=== PATIENT | male | born 1950 | race Caucasian/White ===

== ENCOUNTER 2016-08-15 22:55 | Observation (INO) | payer BC ==
--- NOTE | 2016-08-16 00:41 | ED ---
Abdominal Pain/Male - HPI Summary HPI Summary: Patient presents with a year of diffuse abdominal pain that worsened today in the RUQ. He has a history of compulsive eating, Lyme disease, and anxiety. He does not relate the pain to eating, drinking or exertion. No fever, chills, N/V/ D, or back pain. He says he can't button his pants because he thinks he is bloated. No urinary symptoms, or constipation. He had a normal bowel movement today and has been eating and drinking at his baseline. - History of Current Complaint Chief Complaint: EDAbdPain Stated Complaint: LRQ PAIN/FEVER 100 Time Seen by Provider: 08/15/16 23:31 Hx Obtained From: Patient Onset/Duration: Gradual Onset Timing: Constant Severity Initially: Mild Severity Currently: Moderate Pain Intensity: 4 Location: Discrete At: RUQ Radiates: No Character: Dull Aggravating Factor(s): Nothing Alleviating Factor(s): Nothing Associated Signs And Symptoms: Positive: Negative - Allergies/Home Medications Allergies/Adverse Reactions: Allergies Allergy/AdvReac Type Severity Reaction Status Date / Time Clindamycin Allergy Severe Diarrhea Verified 08/15/16 23:06 Penicillins Allergy Severe Rash And Verified 08/15/16 23:06 Itching Benzodiazepines Allergy LOSS OF Verified 08/15/16 23:06 MEMORY Home Medications: Home Medications lamoTRIgine TAB(*) [LaMICtal TAB(*)] 100 mg PO BEDTIME 08/16/16 [History Confirmed 08/16/16] PMH/Surg Hx/FS Hx/Imm Hx Endocrine/Hematology History: Denies: Hx Diabetes Cardiovascular History: Reports: Hx Syncope, Other Cardiovascular Problems/ Disorders - States cardiac symptoms were related to tooth infections Denies: Hx Congestive Heart Failure, Hx Hypertension, Hx Pacemaker/ICD Respiratory History: Denies: Hx Asthma GI History: Reports: Hx Gastroesophageal Reflux Disease, Other GI Disorders - constriction of voice History: Denies: Hx Dialysis, Hx Renal Disease Musculoskeletal History: Reports: Hx Back Problems - L5 fracture Sensory History: Reports: Hx Contacts or Glasses Denies: Hx Hearing Aid Opthamlomology History: Reports: Hx Contacts or Glasses Neurological History: Reports: Hx Headaches, Other Neuro Impairments/Disorders - Hx L5 fracture, seizure prior to admission, dizziness Psychiatric History: Reports: Hx Anxiety, Hx Attention Deficit Hyperactivity Disorder - ADD, Hx Post Traumatic Stress Disorder - per patient; undiagnosed., Hx Substance Abuse Denies: Hx Panic Disorder, Hx Suicide Attempt - Cancer History Cancer Type, Location and Year: melanoma 4-5 years ago - Surgical History Surgery Procedure, Year, and Place: SKIN CARCINOMA 2008. TONSILS CHILD Hx Anesthesia Reactions: No Infectious Disease History: No Infectious Disease History: Denies: Traveled Outside the [place] in Last 30 Days - Family History Known Family History: Positive: None - Social History Occupation: Employed Part-time Lives: Alone Alcohol Use: None Substance Use Type: Reports: None Smoking Status (MU): Never Smoked Tobacco Review of Systems Negative: Fever, Chills Negative: Chest Pain Negative: Shortness Of Breath Positive: Abdominal Pain. Negative: Vomiting, Diarrhea, Nausea Positive: no symptoms reported Negative: Myalgia, Decreased ROM Negative: Weakness, Paresthesia, Numbness All Other Systems Reviewed And Are Negative: Yes Physical Exam - Summary Physical Exam Summary: Patient is resting comfortably on the stretcher in no acute distress. Triage Information Reviewed: Yes Vital Signs On Initial Exam: Initial Vitals Temp Pulse Resp BP Pulse Ox 99.9 F 105 20 112/69 98 08/15/16 23:00 08/15/16 23:00 08/15/16 23:00 08/15/16 23:00 08/15/16 23:00 Vital Signs Reviewed: Yes Appearance: Positive: Well-Appearing, No Pain Distress, Well-Nourished Skin: Positive: Warm, Skin Color Reflects Adequate Perfusion, Dry, Soft Head/Face: Positive: Normal Head/Face Inspection Eyes: Positive: EOMI, MINOR, Conjunctiva Clear ENT: Positive: Hearing grossly normal, Pharynx normal Neck: Positive: Supple, Nontender, No Lymphadenopathy Respiratory/Lung Sounds: Positive: Clear to Auscultation, Breath Sounds Present Cardiovascular: Positive: RRR Abdomen Description: Positive: Soft. Negative: Nontender - RUQ tenderness, CVA Tenderness (R), CVA Tenderness (L), Distended, Guarding, Hepatomegaly, McBurney' s Point Tenderness, Peritoneal Signs, Pulsatile Mass, Splenomegaly Bowel Sounds: Positive: Present Musculoskeletal: Negative: Edema Left, Edema Right Neurological: Positive: Sensory/Motor Intact, Alert, Oriented to Person Place, Time, NV Bundle Intact Distally, Normal Gait Psychiatric: Positive: Anxious - patient is tangential and relates many physical complaints unrelated to his primary visit complaint AVPU Assessment: Alert Diagnostics - Vital Signs Vital Signs Temp Pulse Resp BP Pulse Ox 08/15/16 23:05 99.9 F 20 20 112/69 98 08/15/16 23:00 99.9 F 105 20 112/69 98 - Laboratory Result Diagrams: 08/17/16 04:17 08/16/16 00:55 Lab Statement: Any lab studies that have been ordered have been reviewed, and results considered in the medical decision making process. - Ultrasound No standard instances Ultrasound Interpretation: Positive (See Comments) Ultrasound Interpretation Completed By: Radiologist - incidental celiac artery aneurysm Abdominal Pain Fem Course/Dx - Diagnoses Differential Diagnosis/HQI/PQRI: Appendicitis, Bowel Obstruction, Constipation, Diverticulitis, Hepatitis, Pancreatitis, Renal Colic, Ureteral Stone, Urinary Tract Infection Provider Diagnoses: Appendicitis - Provider Notifications Discussed Care Of Patient With: Patient care given to Dr. Diaz Time Discussed With Above Provider: 03:50 Discharge - Discharge Plan Condition: Stable Disposition: ADMITTED TO [facility]
[2016-08-16 01:07] LABS: Hematocrit 44 % (42-52); Hemoglobin 14.3 g/dl (14.0-18.0); Mean Corpuscular HGB Conc 33 g/dl (31-36); Mean Corpuscular Hemoglobin 28 pg (27-31); Mean Corpuscular Volume 87 fL (80-94); Mean Platelet Volume 8 um3 (7.4-10.4); Red Blood Count 5.05 10^6/ul (4.0-5.4); Red Cell Distribution Width 13 % (10.5-15); White Blood Count 16.9 10^3/ul (3.5-10.8)
[2016-08-16 01:13] LABS: Urine Bilirubin Negative (Negative); Urine Glucose Negative (Negative); Urine Nitrite Negative (Negative)
[2016-08-16 01:25] LABS: Albumin 4.4 g/dL (3.2-5.2); BUN/Creatinine Ratio 14.5 (8-20); C Reactive Protein 2.74 mg/L (< 5.00); Calcium 9.5 mg/dL (8.6-10.3); EGFR African American 86.7 (>60); EGFR Non-African American 67.4 (>60); Globulin 2.6 g/dL (2-4); Total Bilirubin 0.9 mg/dL (0.2-1.0)
[2016-08-16 01:44] LABS: Potassium 4.1 mmol/L (3.5-5.0)
[2016-08-16] MEDS ORDERED: Sodium Phosphate ADULT ENEMA* 118 ml bottle PR ONE (03:47)
[2016-08-16] MEDS ORDERED: NS 0.9% 1000 ML* 1,000 ML IV ONE (03:55)
[2016-08-16] MEDS ORDERED: Iohexol 300* (CONTRAST) 10 ML SDV IV ONE (04:49)
--- NOTE | 2016-08-16 07:56 | RAD ---
INDICATION: ] Right upper quadrant pain COMPARISON: CT abdomen pelvis August 16, 2016 TECHNIQUE: Longitudinal and transverse scans of the right upper quadrant were obtained. Doppler interrogation of the hepatic and portal venous system was performed. FINDINGS: Liver: The liver is normal in size and echogenicity. There are no focal masses. The liver measures 15 cm in cephalocaudal dimension. Vessels: There is normal hepatic and portal venous flow. Bile ducts: There is no evidence of intrahepatic or extrahepatic ductal dilatation. The common duct measures 0.4 cm. Gallbladder: The sonographic appearance of the gallbladder is normal. There is no evidence of cholelithiasis, thickening of the gallbladder wall, or pericholecystic fluid. Pancreas: The visualized pancreas appears normal Right kidney: The right kidney is normal in size and echogenicity. There are no masses or calculi. There is no evidence of hydronephrosis. The right kidney measures 9.6 x 5.4 x 4.7 cm. IVC and aorta: The aorta and superior vena cava appear normal. Fluid: There is no ascites. 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 This is also documented on the CT exam IMPRESSION: NORMAL GALLBLADDER. INCIDENTAL CELIAC ARTERY ANEURYSM. PLEASE REFER ALSO TO CONCURRENT CT REPORT WHICH ACUTE APPENDICITIS IS IDENTIFIED.
--- NOTE | 2016-08-16 08:14 | ED ---
Annie Dennis Alok, scribed for Juan Diaz MD on 08/16/16 at 0536 . Progress - Progress Note Progress Note: Abd/Pel CT - Impression: Acute appendicitis without abscess or free air. Secondary cecal inflammation. ADMIT SURGERY STABLE - EKG/XRAY/CT CT: Abd/Pel CT - See note - Consult/PCP Consult/PCP: Dr Stephens (Surgery) @ [id number] Course/Dx - Course Course Of Treatment: NO CRITICAL CARE TIME. ADMIT SURGERY STABLE - Diagnoses Provider Diagnoses: Appendicitis The documentation as recorded by the Annie auguste Alok accurately reflects the service I personally performed and the decisions made by Emily canela William, MD.
--- NOTE | 2016-08-16 08:30 | RAD ---
INDICATION: RIGHT upper quadrant and RIGHT lower quadrant pain. Elevated white blood cell count. History of melanoma 10 years ago. COMPARISON: RIGHT upper quadrant ultrasound of the same date and January 15, 2013 CT. TECHNIQUE: Multidetector CT images were obtained from the lung bases to the ischial tuberosities with 68 mL Visipaque 320 IV and oral contrast. Multiplanar reformation. REPORT: At the visualized inferior thorax appears a partially visualized 1.4 cm relative hypodense probable lymph node anterior to the RIGHT inferior pulmonary vein increased from 0.9 cm short axis on the 2013 exam. 4 mm hypodense lesion at the LEFT lateral hepatic segment is unchanged compared with the 2013 exam without concern. No suspicious focal hepatic lesions or biliary dilatation. No CT abnormality of the gallbladder or pancreas. Ill-defined 0.7 cm hypodensity in the spleen is unchanged compared with the 2013 exam without concern. Negative for splenomegaly. Negative for CT abnormality of the upper GI or small bowel. Enlarged medially extending appendix measures up to 1.1 cm diameter and demonstrates mural thickening and minimal periappendiceal inflammatory stranding. Associated mural thickening at the cecum. No periappendiceal abscess evident. Mild colonic diverticulosis without findings of diverticulitis. Negative for ascites, free air, hernias. Normal adrenal glands. Subcentimeter cyst mid pole RIGHT kidney. Negative for suspicious renal lesions or hydronephrosis. Symmetric nephrograms and pyelograms. Unremarkable ureters and urinary bladder. Negative for abdominal pelvic lymphadenopathy. Mild calcific plaque of normal diameter abdominal aorta and iliac arteries. Fusiform aneurysm of the celiac axis measuring up to 1.5 cm diameter mildly increased from 1.3 cm diameter on the 2013 exam. Unremarkable superior mesenteric artery, renal arteries, and inferior mesenteric artery. 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 Complete L5-S1 disc space narrowing with associated vertebral endplate osteophytosis and reactive endplate sclerosis. Typical arthropathic related cyst at the anterolateral margins of the femoral necks. No suspicious focal osseous lesions. IMPRESSION: 1. The constellation of findings is most consistent with acute appendicitis without associated periappendiceal abscess or resulting bowel obstruction. Noted associated mural thickening at the cecum is likely reactive. 2. Mild interval enlargement of the celiac axis aneurysm compared with the 2013 exam now measuring up to 1.5 cm diameter. 3. Interval enlargement of low density probable lymph node anterior to the RIGHT inferior pulmonary vein now measuring up to 1.4 cm short axis diameter. Given history of melanoma consider PET CT for further assessment.
[2016-08-16] MEDS ORDERED: Ondansetron INJ* 2 MG/ML VIAL IV PRN (08:54)
[2016-08-16] MEDS ORDERED: HYDROmorphone* 1 MG/ML 1 ML SYR IV PRN ×2 (08:54→18:07)
[2016-08-16] MEDS: metroNIDAZOLE IV 500 MG/100ML* 500 MG/100 ML BAG IVPB SCH ×2 (09:45→20:53)
[2016-08-16] MEDS: D5W IVPB SCH (11:45)
[2016-08-16] MEDS: LEVOFLOXACIN IVPB SCH (11:45)
--- NOTE | 2016-08-16 13:05 | HP ---
ADMISSION HISTORY AND PHYSICAL: DATE OF ADMISSION: 08/16/16 PATIENT OF: Terrell Rivas MD REASON FOR ADMISSION: Abdominal pain. HISTORY OF PRESENT ILLNESS: Mr. Portillo is a pleasant 66-year-old gentleman who presented to the em ergency room earlier this morning with complaints of worsening abdominal pain. He described it as a sharp stabbing episode of right upper quadrant and then right lower quadrant abdominal pain on and off for the last 24 hours. He notes similar episodes for the last few weeks, but has gotten progres sively worse with time and it got to the point of being intolerable last night. He describes pain a s being severe at times, 10/10, sharp and stabbing, localized mostly to the right lower quadrant wit h no radiation. He also notes associated nausea, but denies any vomiting or recent changes in the b owel habits. He also notes occasional chills and feeling sweaty at night and low-grade fever of 100 yesterday. He has had no urinary symptoms or any history of kidney stones either. Given the intens ity of his pain last night, he presented to the emergency room for further evaluation. He otherwise is a relatively healthy middle-aged gentleman with only medical history significant for a seizure d isorder that has been maintained taking Lamictal every day. During his ED visit, he was noted to cifuentes ve leukocytosis with white count of 16,000. He also had a CT scan of the abdomen and pelvis that re vealed findings consistent with acute appendicitis without perforation or free air. We were asked t o see the patient for further evaluation of abdominal pain and to discuss possible appendectomy. PAST MEDICAL HISTORY: As mentioned above, significant for seizure disorder that was discovered a fe w years ago. 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 He also has a melanoma on the forearm that was excised a few years ago. PAST SURGICAL HISTORY: Significant for tonsillectomy during childhood as well as melanoma excision of the forearm years ago. CURRENT MEDICATIONS: His medications at home include Lamictal, unsure about the dose that he takes once daily. ALLERGIES: He is allergic to PENICILLINS and BENZODIAZEPINE that produce a significant face swellin g and rash. He is also allergic to CLINDAMYCIN and he described causing diarrhea. SOCIAL HISTORY: Patient is retired. He used to work as a construction laborer. He is a nonsmoke r who quit drinking alcohol 25 years ago. His caffeine intake is minimal. FAMILY HISTORY: He denies any family history of colorectal malignancies. REVIEW OF SYSTEMS: See HPI, otherwise negative. He denies any headache, syncope, change of vision, chest pain or shortness of breath. No cough, wheezing or hemoptysis. He admits to abdominal pain, but denies any vomiting or changes in bowel habits. No dysuria, hematuria, or urinary frequency. He reports history of L5 fracture from fall in the remote past, but denies any weakness of the lower extremities or loss of bladder or stool control. PHYSICAL EXAMINATION GENERAL: He is a pleasant, healthy-appearing, middle-aged gentleman in no acute distress or discomf ort at the time of admission. VITAL SIGNS: His most recent set of vitals revealed a temperature of 98.9, pulse of 95, blood press ure of 101/60, O2 sat of 97% on room air, and his pain level right now is 2/10. HEENT: Sclerae anicteric. PERRLA. EOMs intact. Oropharynx is pink and moist, with no exudate. NECK: Supple. Trachea midline. No cervical adenopathy, thyromegaly, or JVD. LUNGS: Clear to auscultation bilaterally. HEART: Regular rate and rhythm. Normal S1 and S2 without rubs, murmurs, or gallops. BACK: Normal curvature, no CVA tenderness. ABDOMEN: Soft and nondistended. There is moderate right lower quadrant tenderness on light palpati on, some guarding was noted too, but no rigidity. There is moderate rebound tenderness as well with focal point tenderness right at McBurney's point. There are no hernias, masses, or hepatosplenomeg yonatan noted. Negative Wade sign was noted as well. EXTREMITIES: Without cyanosis, clubbing, or edema. NEUROLOGIC: Grossly intact. RECTAL EXAM: Deferred at this time. LABORATORY WORKUP: Patient had a CBC and chemistry during his ED visit revealing a white count of 16,900, hemoglobin 14.3, hematocrit 44, and platelets of 193. His chemistry was sodium of 135, pota ssium 4.1, chloride 101, CO2 25, BUN 16, creatinine 1.1, and glucose of 95. His LFTs, amylase, and lipase were essentially within normal limits. ACCESSORY DIAGNOSTIC DATA: Ultrasound of the right upper quadrant revealed normal- appearing gallbl adder with no evidence of cholecystitis or cholelithiasis. Patient also had a CT scan of the abdome n and pelvis that showed finding consistent with acute appendicitis with no associated abscess, perf oration, or free air. ASSESSMENT: A 66-year-old gentleman with worsening right lower quadrant abdominal pain with associa hardik nausea and fever. Leukocytosis with other signs and symptoms consistent with acute appendicitis . PLAN: Patient will be admitted under surgical services in anticipation for a laparoscopic appendect kendra later today. I went on and discussed with him the findings of his physical exam and CT scan and ultrasound. He appears to be well informed and consented to go forth with the surgery. The ration candace, indications, risks, and benefits of a laparoscopic appendectomy were discussed with him today. Risks include, but not limited to, infection, bleeding or injury to adjacent structures. For the ti me being, he will be admitted right now. We will keep an n.p.o. and cover him empirically on antibio tics as well as IV fluid, and he will likely be taken to the operating room later this afternoon in anticipation for a laparoscopic appendectomy. We will follow him up accordingly after surgery. FREDI SILVERMAN [id number]/[facility] #: [id number]
[2016-08-16] MEDS ORDERED: Succinylcholine* 20 MG/ML 10 ML VIAL ONE (14:20)
[2016-08-16] MEDS ORDERED: Lidocaine 1% INJ* 10 MG/ML 30 ML SDV ONE (14:20)
[2016-08-16] MEDS ORDERED: KETAMINE HCL* 50 MG/ML 10 ML VIAL ONE (14:55)
[2016-08-16] MEDS ORDERED: fentaNYL* 50 MCG/ML 2 ML VIAL (100 MCG VIAL) ONE ×2 (14:55→18:08)
[2016-08-16] MEDS ORDERED: Midazolam* 1 MG/ML 2 ML VIAL (2 MG) ONE (14:56)
[2016-08-16] MEDS ORDERED: Bupivacaine 0.25% EPI 200,000* 30 ML SDV ONE (15:35)
[2016-08-16] MEDS ORDERED: metroNIDAZOLE IV 500 MG/100ML* 500 MG/100 ML BAG IVPB ONE (15:43)
[2016-08-16] MEDS ORDERED: Propofol* 10 MG/ML 20 ML BTL IV PUSH ONE (16:34)
[2016-08-16] MEDS ORDERED: Dexamethasone IV* 4 MG/ML 1 ML (4 MG) ONE (16:35)
[2016-08-16] MEDS ORDERED: Ketorolac INJ* 30 MG/ML 1 ML VIAL ONE (16:35)
[2016-08-16] MEDS ORDERED: Ondansetron INJ* 2 MG/ML VIAL ONE (16:35)
[2016-08-16] MEDS ORDERED: Rocuronium* 10 MG/ML VIAL ONE (16:45)
[2016-08-16] MEDS ORDERED: Neostigmine Methylsulfate* 2 MG/2 ML SYRINGE ONE (17:00)
[2016-08-16] MEDS ORDERED: Glycopyrrolate IV* 0.2 MG/ML 1 ML VIAL ONE (17:00)
--- NOTE | 2016-08-16 18:00 | SURGPN ---
Brief Operative Note - Surgery Procedures: OPERATIVE REPORT PRE-OP: Acute appendicitis POST-OP: Same. chronic appendicitis PROCEDURE: Laparoscopic appendectomy SURGEON: MD Taylor ANESTHESIA: General with local ASST: Ester Rivas MD IVF: 1 liter of crystalloid EBL: min SPECIMEN: Appendix DRAIN: none WOUND CLASS: 3 COMPLICATIONS: none TO PACU
[2016-08-16] MEDS ORDERED: DiMENhydriNATE IV* 50 MG/ML VIAL IV PUSH PRN (18:07)
[2016-08-16] MEDS ORDERED: fentaNYL* 50 MCG/ML 2 ML VIAL (100 MCG VIAL) IV PRN (18:07)
[2016-08-16] MEDS ORDERED: Ketorolac INJ* 30 MG/ML 1 ML VIAL IV PUSH PRN (18:31)
[2016-08-16] MEDS ORDERED: oxyCODONE/Acetamin 5/325 MG* TAB PO PRN (18:31)
[2016-08-16] MEDS ORDERED: Acetaminophen TAB* 325 MG PO PRN (18:31)
[2016-08-16] MEDS: Ondansetron INJ* 2 MG/ML VIAL IV SCH ×2 (20:50→23:09)
[2016-08-16] MEDS: Heparin VIAL(*) 5000 UNITS/ML VIAL (FIVE THOUSAND) SUBCUT SCH (22:06)
[2016-08-17] MEDS: metroNIDAZOLE IV 500 MG/100ML* 500 MG/100 ML BAG IVPB SCH ×2 (00:02→07:36)
[2016-08-17] MEDS ORDERED: lamoTRIgine TAB(*) 100 MG PO SCH (01:00)
[2016-08-17] MEDS: Ondansetron INJ* 2 MG/ML VIAL IV SCH ×2 (03:08→07:03)
[2016-08-17 05:02] LABS: Hematocrit 37 % (42-52); Hemoglobin 12.3 g/dl (14.0-18.0); Mean Corpuscular HGB Conc 33 g/dl (31-36); Mean Corpuscular Hemoglobin 29 pg (27-31); Mean Corpuscular Volume 87 fL (80-94); Mean Platelet Volume 8 um3 (7.4-10.4); Red Blood Count 4.25 10^6/ul (4.0-5.4); Red Cell Distribution Width 14 % (10.5-15); White Blood Count 10.3 10^3/ul (3.5-10.8)
[2016-08-17] MEDS: Heparin VIAL(*) 5000 UNITS/ML VIAL (FIVE THOUSAND) SUBCUT SCH ×2 (05:47→13:46)
--- NOTE | 2016-08-17 08:49 | PN ---
Progress Note - Progress Note SOAP: Subjective: Pain well controlled Tolerating water and tea Ambulating in halls Objective: Temp Pulse Resp BP Pulse Ox 97.9 F 82 16 95/56 94 08/17/16 07:38 08/17/16 07:38 08/17/16 07:41 08/17/16 07:38 08/17/16 07:41 Intake & Output 08/15/16 08/16/16 08/17/16 08/18/16 06:59 06:59 06:59 06:59 Intake Total 1000 2821 Output Total 2825 Balance 1000 -4 Weight 155 lb 155 lb Intake: IV Fluids 1000 2701 LR 1651 IVPB 100 Oral 20 Output: Urine 2825 Other: Estimated Void Medium # Voids 1 PEX: Comfortable Lungs are clear Abd is soft and non-distended. Incisions are clean and dry Bowel sounds are present Laboratory Results - last 24 hr 08/17/16 04:17 WBC 10.3 RBC 4.25 Hgb 12.3 L Hct 37 L MCV 87 MCH 29 MCHC 33 RDW 14 Plt Count 176 MPV 8 Neut % (Auto) 86.5 H Lymph % (Auto) 10.3 L Miner % (Auto) 3.0 Eos % (Auto) 0.1 Baso % (Auto) 0.1 Absolute Neuts (auto) 8.9 H Absolute Lymphs (auto) 1.1 Absolute Monos (auto) 0.3 Absolute Eos (auto) 0 Absolute Basos (auto) 0 Absolute Nucleated RBC 0.01 Nucleated RBC % 0.1 Assessment: POD# 1 s/p lap appy for acute appendicitis Plan: Advance diet as tolerated Increase activity Sub q heparin If does well, d/c later today. He does not need antibiotics on d/c All of the operative findings discussed with patient and his last night.
[2016-08-17] MEDS ORDERED: lamoTRIgine TAB(*) 100 MG PO ONE (08:56)
[2016-08-17] MEDS ORDERED: lamoTRIgine TAB(*) 25 MG PO ONE (08:56)
[2016-08-17] MEDS: LEVOFLOXACIN IVPB SCH ×2 (10:58→11:34)
[2016-08-17] MEDS: D5W IVPB SCH ×2 (10:58→11:34)
--- NOTE | 2016-08-17 14:56 | OP ---
DATE OF OPERATION: 08/16/16 - ROOM #332 DATE OF : 54 SURGEON: Horace Vazquez MD. EMPLOYER RELATIONS REPRESENTATIVE: Terrell Rivas MD. ANESTHESIOLOGIST: Dr. Peña. ANESTHESIA: General with local. PRE-OP DIAGNOSIS: Acute appendicitis. POST-OP DIAGNOSES: 1. Acute appendicitis. 2. Chronic inflammatory changes of the appendix. OPERATIVE PROCEDURE: Laparoscopic appendectomy. ESTIMATED BLOOD LOSS: Minimal. WOUND CLASSIFICATION: Three. COMPLICATIONS: None. DRAINS: None. SPECIMEN: Appendix. FINDINGS: The appendix appeared to be acutely inflamed without evidence of perforation or gangrene. However, there was thickening of the serosa, as well as some of its mesentery and there was also inflammation of the serosa of the cecum. Initially, this was felt to be somewhat thickened, however when dissection was carried down to the base of the appendix and it was felt that the cecum appeared to be soft and pliable and was divided with an Endo MOHIT purple load of 60 mm stapler. The terminal ileum appeared to be unremarkable. There was no other abnormality noted on laparoscopy BRIEF HISTORY: Mr. Pauline Portillo is a 66-year-old gentleman who presented to the emergency room with almost 24 hours of severe abdominal pain becoming localized in the right lower quadrant. He had became anorexic although no fevers, shakes or chills, and did have several loose bowel movements yesterday, but none today. He gives a history of some intermittent right upper quadrant abdominal pain over the past year or so, he has not had this evaluated. In the emergency room, he was noted to have white blood cell count of 16,000 with no fever. He was tender in the right lower quadrant and an ultrasound of his gallbladder that had been performed was unremarkable. A CT scan of the abdomen and pelvis was obtained which showed the distended fluid-filled appendix with thickening of the wall and some mild periappendiceal inflammation. Also, noted was some associated thickening of the cecal cap and felt most likely consistent secondary to the acute appendicitis. No evidence of abscess, extraluminal air, or signs of perforation. The patient has been admitted and surgical consultation was obtained. His exam shows tenderness with rebound and guarding in the right lower quadrant. He is nondistended, otherwise. After review of his history, workup, physical exam as well as a CT scan, he has been taken to the operating room for a laparoscopic appendectomy. The procedure was discussed with the patient and his and the risks not limited to bleeding, infection, intraabdominal abscess formation, injury to peritoneal and retroperitoneal structures, possibility of an open procedure, risk of anesthesia, deep vein thrombosis were explained. In addition, treatment with antibiotics as opposed to surgery was discussed, but this was not recommended and the patient did not have interest in proceeding in this direction. DESCRIPTION OF PROCEDURE: Written informed consent was obtained, and the abdomen was marked with indelible ink and preoperative antibiotics were administered. The patient was taken to the operating room, placed in the supine position. Sequential compression devices and a warming blanket were applied. General anesthesia was administered. The abdomen was prepped and draped in the usual sterile fashion. Time-out verification was completed. A small transverse incision was made just above the umbilicus, at the midline, and the peritoneal cavity was entered under direct vision. A 12-mm blunt port was inserted and the abdomen was insufflated to 15 mmHg. A 5 mm port was placed in the left lower abdominal wall and a second 5 mm port was placed in the suprapubic position. Evaluation of the abdomen revealed no evidence of purulence, fluid. No other acute abnormality. The terminal ileum was identified and appeared to be normal. There was some inflammation in the right lower quadrant, especially laterally, but a thickened and inflamed appendix was identified with some edematous mesentery. There appeared to be, however, some thickening and induration possibly more consistent with also chronic inflammatory process in addition to the acute finding. I did not appreciate an appendicolith on palpation of the appendix. There was also some inflammation along the base of the cecum and this was difficult to completely at this point identify that this was related to the appendix. This only seemed to have involved the distal 2 to 3 cm of the cecum and it is more distal portion, as well as the ascending colon appear to be really soft and pliable. The appendix was grasped and its mesentery was divided sequentially from distal to proximal using the ligature device without difficulty. There was some more indurated chronically inflamed tissue at the base of the appendix and worked hard to identify its junction with the cecum, as well as identifying the terminal ileum where it entered the cecum with care to prevent any encroachment on this junction as well. So, we were able to kind of clean off some of the more chronically adherent tissue. The base of the cecum did appear to be quite soft and pliable and I felt this was amenable to placing a stapler across it. Obvious concern was more than just acute appendicitis. Something such as inflammatory bowel disease; however, the terminal ileum appeared to be normal and there was really no significant change in the remainder of the cecum and proximal right colon. Next, a Endo MOHIT purple load of the 60 mm stapler was fired across the base of the appendix to include some of the cecum without difficulty. The staple line was intact. No evidence of bleeding and appeared to be in healthy tissue. The Endo Catch bag was then used to remove the appendix. The right lower quadrant was irrigated. Hemostasis was assured. Once again, no other acute abnormalities were noted on laparoscopy. All ports removed under the direct vision of the camera. There was no abdominal wall bleeding. The umbilical fascia was closed with interrupted 0 Polysorb suture. Skin at all 3 incisions was approximated with subcuticular 4-0 Polysorb suture. Steri- Strips and sterile dressings were applied. The patient tolerated the procedure well and was taken to the recovery room in stable condition. CC: [facility]; Dr. Luis Eduardo Broderick MD* [id number]/[facility] #: [id number] HERLINDA
[2016-08-17 15:31] VITALS: BP 96/53
--- NOTE | 2016-08-18 14:05 | DS ---
CC: Dr. Broderick in Family Medicine DISCHARGE SUMMARY: DATE OF ADMISSION: 08/16/16 DATE OF DISCHARGE: 08/17/16 HOSPITAL COURSE: The patient was admitted and taken to the operating room on 08/16/16, at which leela hilliard he underwent laparoscopic appendectomy for acute appendicitis without perforation (there were some chronic inflammatory changes as well, see separate operative note). The patient had an otherwise u neventful postoperative course and was tolerating clear liquids well. The morning of discharge, his temperature is 97.9, blood pressure 95/56, pulse 86, respirations 16. Exam by Dr. Vazquez revealed lungs clear. Abdomen: Soft, nondistended. Incisions clean and dry. Bowel sounds present. He did have a CBC the morning of 08/17/16, which was essentially normal. IMPRESSION: Status post laparoscopic appendectomy for acute appendicitis. PLAN: Home today (will not need any additional antibiotics.) He will resume his usual medications. He declined prescription for narcotic and will use Tylenol and/or Advil instead. He has a followu p with our office on 08/24/16. FREDI SUN [id number]/[facility] #: [id number]
== END 2016-08-17 16:00 | disposition home or self-care (01) ==
LOC: ED 22:55 → UNDOADMOB 08-16 08:54 → SSU 08-16 08:54 → UNDODISOB 08-17 16:00
PROVIDERS: ADMIT Surgery; ATTEND Surgery
PROC: 0DTJ4ZZ Resection of Appendix, Percutaneous Endoscopic Approach (ICD-10-PCS; principal; 2016-08-16 13:45)
DX: K35.80 Unspecified acute appendicitis (principal); G40.909 Epilepsy, unspecified, not intractable, without status epilepticus; Z79.899 Other long term (current) drug therapy; Z88.0 Allergy status to penicillin; Z88.1 Allergy status to other antibiotic agents; Z88.8 Allergy status to other drugs, medicaments and biological substances
CPT/HCPCS: 36415; 74177; 76705; 80053; 81003; 82150; 83690; 85025; 86140; 86618; 88304; 94760; 96365; 96366; 96367; 96372; 96375; 99284; A9270-GY; C1776; G0378; J0330; J1100; J1644; J1885; J1956; J2001; J2250; J2405; J2704; J3010; Q9967

== ENCOUNTER 2017-07-19 10:01 | Emergency (ER) | payer BC, MEDICARE ==
--- OUTSIDE RECORDS SUMMARY | 2017-07-19 10:43 | XMS REPORT ---
:1950 External Reference #:[id number] Author Organization [facility] Address [address] [place] [address] Phone [phone] Care Team Providers Name Role Phone Cristina Hastings N.P. Care Team Information Blueprint Duplicator Unavailable Luis Eduardo Broderick M.D. Primary Care Physician Unavailable Payers Type Date Identification Numbers Payment Provider Subscriber Commercial Policy Number: [id number] [facility] Group Number: [id number] [address] [address] Group Name: [employer] [place] [address] PayID: [id number] Medigap Part B PayID: [id number] [facility] Pauline Dereck Lindsey [address] [facility] [place] [address] Problems Date Description Provider Status Onset: 04/09/2014 Gastroesophageal reflux disease Salomón Ovalles M.D. Active Onset: 04/09/2014 Periodic limb movement disorder Salomón Ovalles M.D. Active Onset: 02/12/2014 Acute atopic conjunctivitis Salomón Ovalles M.D. Active Onset: 02/12/2014 Seizure Salomón Ovalles M.D. Active Onset: 02/12/2014 Obstructive sleep apnea syndrome Salomón Ovalles M.D. Active Family History Date Family Member(s) Problem(s) Comments General Heart Attack General Heart Disease General Migraine General Stroke General Alcohol Problem Social History Type Date Description Comments Occupation Retired Cigarette Use Former Social Cigarette Smoker Cigarette Use for 3 yrs, quit at age 29 Cigars Never Smoked Cigars Pipe Never Smoked A Pipe Smokeless Tobacco Never Used Smokeless Tobacco ETOH Use Denies alcohol use Smoking Patient is a former smoker 1.5 years on and off. Allergies, Adverse Reactions, Alerts Date Description Reaction Status Severity Comments 02/12/2014 Penicillin Urticaria active 02/12/2014 Clindamycin tachycardia, bloody stoos active 07/19/2017 Benzodiazepines active memory loss Medications Medication Date Status Form Strength Qnty SIG Indications Ordering Provider Lamictal Active Tablets 100mg 1 by mouth Davie, 000 bid Luis Eduardo Olvera Latanoprost Active Solution 0.005% Cardona, 000 Flavio Norman Complete Active Tablets as Unknown 000 directed Vitamin C Active Capsules 500mg as Unknown 000 directed Pataday Hx Solution 0.2% 2.5uni 1 drop in 372.05 Salomón Fountain - ts each eye Josr everyday May 014 as needed for itching Citalopram Hx Tablets 10mg 1 by mouth Darlow, Hydrobromide 000 - every day Luis Eduardo Olvera 014 Vital Signs Date Vital Result Comment 07/19/2017 Weight 155.00 lb Weight in kg's 70.308 Height 67 inches 5'7" Height in cm's 170.2 cm BMI (Body Mass Index) 24.3 kg/m2 06/04/2014 BP Systolic 114 mmHg BP Diastolic 64 mmHg Heart Rate 87 /min Respiratory Rate 17 /min Weight 156.00 lb Weight in kg's 70.762 Height 67 inches 5'7" Height in cm's 170.2 cm BMI (Body Mass Index) 24.4 kg/m2 04/09/2014 BP Systolic 106 mmHg BP Diastolic 63 mmHg Heart Rate 78 /min Respiratory Rate 17 /min Weight 156.00 lb Weight in kg's 70.762 Height 67 inches 5'7" Height in cm's 170.2 cm BMI (Body Mass Index) 24.4 kg/m2 02/12/2014 BP Systolic 110 mmHg BP Diastolic 65 mmHg Heart Rate 93 /min Respiratory Rate 17 /min Weight 156.00 lb Weight in kg's 70.762 Height 67 inches 5'7" Height in cm's 170.2 cm BMI (Body Mass Index) 24.4 kg/m2 Results Description No Information Procedures Date CPT Code Description Status 07/19/2017 65669 Fiberoptic Laryngoscopy Completed Encounters Type Date Location Provider CPT E/M Dx Office Visit 07/19/2017 9:45a [place] 04/18/07 Salomón Ovalles, [address]50 R07.0 M.DKatlyn R13.14 R07.9 Office Visit 06/04/2014 2:15p [place],After 04/18/07 Salomón Ovalles, [address]33 327.23 M.D. 780.39 327.51 Office Visit 04/09/2014 9:45a [place],After 04/18/07 Salomón Ovalles, 88419 327.23 M.D. 327.51 530.81 Office Visit 02/12/2014 1:45p [place],After 04/18/07 Salomón Ovalles, [address]45 327.23 M.D. 780.39 372.05 Plan of Care 07/19/2017 - Salomón Ovalles M.D.R07.0 Pain in throatComments:The patient presented to me because of pain in his throat and some difficulty swallowing. His ENT examination is normal and his nasolaryngoscopy is normal. A bigger concern today is his intermittent chest pain. I called Dr. Broderick who recommended he go to the ER for a workout and the patient agrees.Both of his parents of heart disease.R13.14 Dysphagia, pharyngoesophageal fiopdL44.9 Chest pain, unspecified
[2017-07-19 11:01] LABS: ABS Basophils 0 10^3/ul (0-0.2); ABS Eosinophils 0.2 10^3/ul (0-0.6); ABS Lymphocytes 1.5 10^3/ul (1.0-4.8); ABS Monocytes 0.4 10^3/ul (0-0.8); ABS Neutrophils 2.8 10^3/ul (1.5-7.7); ABS Nucleated RBC 0 10^3/ul; Eosinophil % 3.8 % (0-6); Hematocrit 42 % (42-52); Hemoglobin 14.4 g/dl (14.0-18.0); Lymphocyte % 30.7 % (25-47); Mean Corpuscular HGB Conc 35 g/dl (31-36); Mean Corpuscular Hemoglobin 30 pg (27-31); Mean Corpuscular Volume 85 fL (80-94); Mean Platelet Volume 7.8 um3 (7.4-10.4); Nucleated Red Blood Cells % 0.1; Platelet Count 181 10^3/ul (150-450); Red Blood Count 4.88 10^6/ul (4.0-5.4); Red Cell Distribution Width 13 % (10.5-15); White Blood Count 4.9 10^3/ul (3.5-10.8)
--- NOTE | 2017-07-19 11:13 | RAD ---
HISTORY: Chest pain, pressure COMPARISONS: January 24, 2015 VIEWS: 1: frontal portable view of the chest at 10:38 AM FINDINGS: LINES AND TUBES: None. CARDIOMEDIASTINAL SILHOUETTE: The cardiomediastinal silhouette is normal for portable technique. PLEURA: The costophrenic angles are sharp. No pleural abnormalities are noted. LUNG PARENCHYMA: The lungs are clear. ABDOMEN: The upper abdomen is clear. There is no subphrenic gas. BONES AND SOFT TISSUES: No bone or soft tissue abnormalities are noted. IMPRESSION: NO ACTIVE CARDIOPULMONARY DISEASE.
[2017-07-19 11:18] LABS: EGFR Non-African American 59.1 (>60)
[2017-07-19 11:34] LABS: Urine Appearance Clear; Urine Blood Negative (Negative); Urine Color Yellow; Urine Ketones Trace (Negative); Urine Protein Negative (Negative); Urine Urobilinogen Negative (Negative)
[2017-07-19 14:28] VITALS: BP 107/53
--- NOTE | 2017-07-22 07:46 | ED ---
Robbi Dennis Angela, scribed for Nitish Barahona MD on 07/19/17 at 1016 . HPI Chest Pain - HPI Summary HPI Summary: This pt is a 67 y/o male presenting to [facility] c/o intermittent left sided chest pain for the past few weeks. Pt describes intermittent non-radiating chest pressure on the left side of his chest. He notes that upon working his chest pain is usually resolved. Pt also states that when he sleeps on the left side he has palpitations that resolve on its own. Denies any SOB, nausea, or vomiting with episodes of chest pain. Pt went to see Dr. Ovalles today, for difficulty swallowing, and was sent to the ED for chest pain. He denies any chest pain currently. Pt has been seeing a chiropractor with some relief of pain. Pt's last stress test was 3-4 years ago. - History of Current Complaint Chief Complaint: EDChestPainROMI Time Seen by Provider: 07/19/17 10:13 Hx Obtained From: Patient Onset/Duration: Started Weeks Ago, Still Present Timing: Intermittent, Lasting Weeks Current Severity: None Pain Intensity: 0 Pain Scale Used: 0-10 Numeric Chest Pain Location: Left Anterior Chest Pain Radiates: No Character: Pressure/Squeezing - Pressure Aggravating Factor(s): Nothing Alleviating Factor(s): Nothing Associated Signs and Symptoms: Positive: Chest Pain - now resolved, Palpitations - now resolved. Negative: Shortness of Breath, Nausea, Vomiting - Allergy/Home Medications Allergies/Adverse Reactions: Allergies Allergy/AdvReac Type Severity Reaction Status Date / Time Benzodiazepines Allergy See Comment Verified 07/19/17 10:09 clindamycin Allergy Nausea And Verified 07/19/17 10:09 Vomiting Penicillins Allergy Rash Verified 07/19/17 10:09 OILS Allergy See Comment Uncoded 12/21/16 12:27 SUGAR Allergy See Comment Uncoded 12/21/16 12:27 Home Medications: Home Medications Latanoprost 0.005%* [Xalatan 0.005%*] 1 drop BOTH EYES QPM 07/19/17 [History Confirmed 07/19/17] lamoTRIgine TAB(*) [LaMICtal TAB(*)] 200 mg PO QPM 07/19/17 [History Confirmed 07/19/17] PMH/Surg Hx/FS Hx/Imm Hx Endocrine/Hematology History: Denies: Hx Diabetes Cardiovascular History: Reports: Hx Syncope, Other Cardiovascular Problems/ Disorders - States cardiac symptoms were related to tooth infections Denies: Hx Congestive Heart Failure, Hx Hypertension, Hx Pacemaker/ICD Respiratory History: Denies: Hx Asthma GI History: Reports: Hx Gastroesophageal Reflux Disease, Other GI Disorders - constriction of voice History: Reports: Hx Benign Prostatic Hyperplasia Denies: Hx Dialysis, Hx Renal Disease Musculoskeletal History: Reports: Hx Back Problems - L5 fracture Sensory History: Reports: Hx Contacts or Glasses Denies: Hx Hearing Aid Opthamlomology History: Reports: Hx Contacts or Glasses Neurological History: Reports: Hx Headaches, Hx Seizures, Other Neuro Impairments/Disorders - Hx L5 fracture, seizure prior to admission, dizziness Psychiatric History: Reports: Hx Anxiety, Hx Attention Deficit Hyperactivity Disorder - ADD, Hx Depression, Hx Post Traumatic Stress Disorder - per patient; undiagnosed., Hx Substance Abuse Denies: Hx Panic Disorder - BE CAREFUL OF BRIGHT LIGHT - PLEASE DIM THE LIGHTS, Hx Suicide Attempt - Cancer History Cancer Type, Location and Year: melanoma 4-5 years ago Hx Chemotherapy: No Hx Radiation Therapy: No Hx Palliative Cancer Treatment: No - Surgical History Surgery Procedure, Year, and Place: APPY (AUGUST 2016) SKIN CARCINOMA 2008. TONSILS CHILD Hx Anesthesia Reactions: No Infectious Disease History: No Infectious Disease History: Denies: Traveled Outside the [place] in Last 30 Days - Family History Known Family History: Positive: Cardiac Disease - Father: fatal [place]. Mother: [place], Hypertension - Mother Family History: Mother: CVA, alcohol abuse - Social History Alcohol Use: None Substance Use Type: Reports: None Smoking Status (MU): Never Smoked Tobacco Type: Cigarettes Have You Smoked in the Last Year: No Review of Systems Negative: Fever, Skin Diaphoresis Negative: Chest Pain Negative: Shortness Of Breath Negative: Vomiting, Nausea Skin: Negative Neurological: Negative All Other Systems Reviewed And Are Negative: Yes Physical Exam - Summary Physical Exam Summary: VITAL SIGNS: Reviewed. GENERAL: Patient is a well-developed and nourished male who is lying comfortable in the stretcher. Patient is not in any acute respiratory distress. HEAD AND FACE: No signs of trauma. No ecchymosis, hematomas or skull depressions. No sinus tenderness. EYES: PERRLA, EOMI x 2, No injected conjunctiva, no nystagmus. EARS: Hearing grossly intact. Ear canals and tympanic membranes are within normal limits. MOUTH: Oropharynx within normal limits. NECK: Supple, trachea is midline, no adenopathy, no JVD, no carotid bruit, no c- spine tenderness, neck with full ROM. CHEST: Symmetric, no tenderness at palpation LUNGS: Clear to auscultation bilaterally. No wheezing or crackles. CVS: Regular rate and rhythm, S1 and S2 present, no murmurs or gallops appreciated. ABDOMEN: Soft, non-tender. No signs of distention. No rebound no guarding, and no masses palpated. Bowel sounds are normal. EXTREMITIES: FROM in all major joints, no edema, no cyanosis or clubbing. NEURO: Alert and oriented x 3. No acute neurological deficits. Speech is normal and follows commands. SKIN: Dry and warm Triage Information Reviewed: Yes Vital Signs On Initial Exam: Initial Vitals Temp Pulse Resp BP Pulse Ox 97.5 F 80 19 112/71 98 07/19/17 10:03 07/19/17 10:03 07/19/17 10:03 07/19/17 10:03 07/19/17 10:03 Vital Signs Reviewed: Yes Diagnostics - Vital Signs Vital Signs Temp Pulse Resp BP Pulse Ox 07/19/17 10:03 97.5 F 80 19 112/71 98 - Laboratory Result Diagrams: 07/19/17 10:50 07/19/17 10:50 Lab Statement: Any lab studies that have been ordered have been reviewed, and results considered in the medical decision making process. - Radiology Chest XR Xray Interpretation: No Acute Changes - IMPRESSION: No active cardiopulmonary disease. Dr. Barahona has reviewed this radiology report. Radiology Interpretation Completed By: Radiologist - EKG 10:27 Cardiac Rate: NL EKG Rhythm: Sinus Rhythm - at 80 bpm EKG Interpretation: No ST elevations. Re-Evaluation - Re-Evaluation First Eval Re-Evaluation Time: 14:08 Comment: I reviewed the lab and XR results with the pt. Pt will be discharged to home. Chest Pain Course/Dx - Course Assessment/Plan: This pt is a 67 y/o male presenting to [facility] c/o intermittent left sided chest pain for the past few weeks. Pt describes intermittent non- radiating chest pressure on the left side of his chest. He notes that upon working his chest pain is usually resolved. Pt also states that when he sleeps on the left side he has palpitations that resolve on its own. Denies any SOB, nausea, or vomiting with episodes of chest pain. Pt went to see Dr. Ovalles today, for difficulty swallowing, and was sent to the ED for chest pain. He denies any chest pain currently. Pt has been seeing a chiropractor with some relief of pain. Pt's last stress test was 3-4 years ago. Initially when the pt came to the emergency department he was asymptomatic without any chest pain. Test results without any significant abnormalities except for Thyroxine of 5.7. Two troponins, 4 hours apart, are both 0.00. Urinalysis is negative for UTI. Chest XR: No active cardiopulmonary disease. EKG shows normal sinus rhythm without ST elevations. Therefore he will be discharged to home with follow up from his PCP. I discussed all the findings and test results with the patient. All questions were answered to patient satisfaction. There were no further complaints or concerns. He is instructed to return to the ED for any worsening or new symptoms. Pt is hemodynamically stable, alert and oriented x3. - Diagnoses Provider Diagnoses: Atypical chest pain Discharge - Sign-Out/Discharge Documenting (check all that apply): Discharge - discharge to home - Discharge Plan Condition: Stable Disposition: HOME Patient Education Materials: Chest Pain (ED) Referrals: Luis Eduardo Broderick MD [Primary Care Provider] - 3 Days Additional Instructions: Please follow up with your primary care provider. RETURN TO THE ED FOR ANY NEW OR WORSENING SYMPTOMS. The documentation as recorded by the Robbi auguste Angela accurately reflects the service I personally performed and the decisions made by me, Nitish Barahona MD.
== END 2017-07-19 14:27 | disposition home or self-care (01) ==
LOC: ED 10:01
DX: R07.89 Other chest pain (principal); R00.2 Palpitations; Z88.1 Allergy status to other antibiotic agents; Z88.0 Allergy status to penicillin; K21.9 Gastro-esophageal reflux disease without esophagitis; N40.0 Benign prostatic hyperplasia without lower urinary tract symptoms; F90.9 Attention-deficit hyperactivity disorder, unspecified type; F41.9 Anxiety disorder, unspecified; F32.9 Major depressive disorder, single episode, unspecified
CPT/HCPCS: 36415; 71045; 80053; 81003; 82550; 82553; 83605; 83735; 83880; 84436; 84443; 84484; 85025; 85730; 93005; 99283

== ENCOUNTER 2017-11-22 22:32 | Emergency (ER) | payer MEDICARE, BC ==
[2017-11-22 22:41] VITALS: BP 126/87
--- OUTSIDE RECORDS SUMMARY | 2017-11-22 22:55 | XMS REPORT ---
:1950 External Reference #:[id number] Author Organization [employer] Address [address] [address] [place] [address] [place] [address] Phone [phone] Care Team Providers Name Role Phone Luis Eduardo Broderick MD Primary Care Physician Unavailable Payers Type Date Identification Numbers Payment Provider Subscriber Medicare Primary Policy Number: [id number] Medicare Pauline Adair PayID: [id number] [address] [place] [address] [facility] Part [facility] Policy Number: [id number] [facility] Pauline Adair PayID: [id number] [address] [address] [place] [address] Problems Date Description Provider Status Onset: 02/16/2013 Generalized convulsive epilepsy Joni Garcia M.D. Active Onset: 04/23/2013 Recurrent manic episodes, moderate Joni Garcia M.D. 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: 11/06/2014 Social History Type Date Description Comments ETOH Use Denies alcohol use Smoking Patient is a former smoker Allergies, Adverse Reactions, Alerts Date Description Reaction Status Severity Comments 02/16/2013 Penicillin active rapid pulse and rash 02/16/2013 Clindamycin active rapid pulse and rash 01/07/2015 Milk-related Compounds active GI upset 05/14/2015 Ativan Memory difficulties active Memory issues for weeks 01/19/2017 Benzodiazepines memory loss active Medications Medication Date Status Form Strength Qnty SIG Indications Ordering Provider Lamictal 10/01/ Active Tablets 100mg 315tab 1.5 tab by Princess 2015 s mouth MD Marilu every morning, and 2 tabs by mouth every night Vitamin C / Active 1 cap po Unknown 0000 3x weekly Cod Liver Oil / Active 1 tab po Unknown 0000 5x weekly Multi Vitamin /00/ Active Tablets 1 by mouth Unknown Mens 0000 every day Latanoprost / Active Solution 0.005% every day Cardona, 0000 Flavio Shahid MD Doxycycline / Active Capsules 100mg one tablet Unknown Hyclate 0000 twice daily for 14 days Lorazepam 10/08/ Hx Tablets 1mg 14tabs 1 tab by 345.40 Fan Shahid 2015 - mouth Zac, 01/06/ twice M.D. 2014 daily as needed for auras Lamotrigine 02/13/ Hx Tablets 100mg 180tab 1 by mouth Fan Shahid 2013 - s twice a Zac, 10/08/ day M.D. 2014 Lamotrigine 08/03/ Hx Tablets 25mg 240tab 2 tabs po Fan Shahid 2013 - s qid Zac, 02/13/ M.D. 2013 Celexa 00/ Hx Tablets 10mg 30tabs 1 po 3x Unknown 0000 - weekly 2013 Dilantin /00/ Hx Capsules 100mg 90caps 1 tab 3 Fan SKatlyn 0000 - times a Zac, 01/16/ day for 2 M.D. 2013 weeks then 1 twice a day for 2 weeks then 1 a day for 2 weeks then stop dilantin Multivitamins 00/00/ Hx Capsules 90caps 1 capsule Unknown 0000 - daily 2013 Biotin 00/00/ Hx 1 tab po Unknown 0000 qd Vitamin B 00/00/ Hx Tablets 1 by mouth Unknown Complex 0000 - every day 2016 Choline 00/00/ Hx 2x weekly Unknown 0000 - 2014 Folic Acid 00/00/ Hx Tablets 1 by mouth Unknown 0000 - every day 2016 Magnesium 00/00/ Hx Capsules one by Unknown 0000 - mouth 07/31/ every day 2018 Calcium / Hx Tablets 1 by mouth Unknown 0000 - every day 2016 Vital Signs Date Vital Result Comment 10/26/2017 Height 68 inches 5'8" Weight 153.12 lb Heart Rate 78 /min BP Systolic 112 mmHg BP Diastolic 68 mmHg BMI (Body Mass Index) 23.3 kg/m2 08/01/2017 Height 68 inches 5'8" Weight 162.25 lb Heart Rate 74 /min BP Systolic 106 mmHg BP Diastolic 60 mmHg BMI (Body Mass Index) 24.7 kg/m2 01/19/2017 Height 68 inches 5'8" Weight 156.00 lb Heart Rate 84 /min BP Systolic 140 mmHg BP Diastolic 82 mmHg BMI (Body Mass Index) 23.7 kg/m2 08/24/2016 Height 68 inches 5'8" Weight 155.00 lb Heart Rate 82 /min BP Systolic 114 mmHg BP Diastolic 70 mmHg Respiratory Rate 16 /min Body Temperature 97.8 F BMI (Body Mass Index) 23.6 kg/m2 07/19/2016 Height 68 inches 5'8" Weight 156.25 lb Heart Rate 78 /min BP Systolic Sitting 104 mmHg BP Diastolic Sitting 68 mmHg Respiratory Rate 16 /min BMI (Body Mass Index) 23.8 kg/m2 01/19/2016 Height 68 inches 5'8" Weight 162.00 lb Heart Rate 80 /min BP Systolic Sitting 116 mmHg BP Diastolic Sitting 80 mmHg Respiratory Rate 14 /min BMI (Body Mass Index) 24.6 kg/m2 08/15/2015 Height 68 inches 5'8" Weight 160.00 lb Heart Rate 68 /min BP Systolic Sitting 108 mmHg BP Diastolic Sitting 70 mmHg Respiratory Rate 14 /min BMI (Body Mass Index) 24.3 kg/m2 05/14/2015 Height 68 inches 5'8" Weight 165.00 lb Heart Rate 80 /min BP Systolic Sitting 126 mmHg BP Diastolic Sitting 80 mmHg Respiratory Rate 14 /min BMI (Body Mass Index) 25.1 kg/m2 01/22/2015 Height 68 inches 5'8" Weight 160.00 lb Heart Rate 88 /min BP Systolic Sitting 120 mmHg BP Diastolic Sitting 68 mmHg Respiratory Rate 14 /min BMI (Body Mass Index) 24.3 kg/m2 01/07/2015 Height 68 inches 5'8" Weight 157.00 lb Heart Rate 84 /min BP Systolic Sitting 102 mmHg BP Diastolic Sitting 62 mmHg Respiratory Rate 16 /min BMI (Body Mass Index) 23.9 kg/m2 11/05/2014 Height 68 inches 5'8" Weight 155.00 lb Heart Rate 80 /min BP Systolic Sitting 104 mmHg BP Diastolic Sitting 70 mmHg Respiratory Rate 14 /min BMI (Body Mass Index) 23.6 kg/m2 10/08/2014 Height 68 inches 5'8" Weight 156.00 lb Heart Rate 80 /min BP Systolic Sitting 102 mmHg BP Diastolic Sitting 62 mmHg Respiratory Rate 17 /min BMI (Body Mass Index) 23.7 kg/m2 07/30/2014 Height 68 inches 5'8" Weight 156.00 lb Heart Rate 80 /min BP Systolic Sitting 102 mmHg BP Diastolic Sitting 64 mmHg Respiratory Rate 16 /min BMI (Body Mass Index) 23.7 kg/m2 02/13/2014 Height 68 inches 5'8" Weight 156.00 lb Heart Rate 80 /min BP Systolic Sitting 102 mmHg BP Diastolic Sitting 64 mmHg Respiratory Rate 16 /min BMI (Body Mass Index) 23.7 kg/m2 10/03/2013 Height 68 inches 5'8" Weight 147.00 lb Heart Rate 84 /min BP Systolic Sitting 100 mmHg BP Diastolic Sitting 74 mmHg Respiratory Rate 12 /min BMI (Body Mass Index) 22.3 kg/m2 08/03/2013 Height 68 inches 5'8" Weight 150.38 lb Heart Rate 80 /min BP Systolic Sitting 110 mmHg BP Diastolic Sitting 70 mmHg Respiratory Rate 16 /min BMI (Body Mass Index) 22.9 kg/m2 04/23/2013 Weight 155.00 lb Heart Rate 64 /min BP Systolic Sitting 100 mmHg BP Diastolic Sitting 68 mmHg 02/16/2013 Height 68 inches 5'8" Weight 157.00 lb BP Systolic 122 mmHg BP Diastolic 80 mmHg Pain Level 0 BMI (Body Mass Index) 23.9 kg/m2 Results Test Date Test Result H/L Range Note Laboratory test 08/16/2016 Surgical Pathology SEE RESULT BELOW 1 finding Laboratory test 01/24/2015 Ast Redraw 37 U/L 13-39 finding C Reactive Protein 3.37 mg/L < 5.00 2 Potassium Redraw 4.4 mmol/L 3.5-5.0 Magnesium 1.8 mg/dL Low 1.9-2.7 CBC Auto Diff 01/24/2015 White Blood Count 5.2 10^3/uL 4.8-10.8 Red Blood Count 4.88 10^6/uL 4.0-5.4 Hemoglobin 14.2 g/dL 14.0-18.0 Hematocrit 43 % 42-52 Mean Corpuscular Volume 88 fL 80-94 Mean Corpuscular Hemoglobin 29 pg 27-31 Mean Corpuscular HGB Conc 33 g/dL 31-36 Red Cell Distribution Width 14 % 10.5-15 Platelet Count 190 10^3/uL 150-450 Mean Platelet Volume 8 um3 7.4-10.4 Abs Neutrophils 3.1 10^3/uL 1.5-7.7 Abs Lymphocytes 1.6 10^3/uL 1.0-4.8 Abs Monocytes 0.3 10^3/uL 0-0.8 Abs Eosinophils 0.2 10^3/uL 0-0.6 Abs Basophils 0 10^3/uL 0-0.2 Abs Nucleated RBC 0.01 10^3/uL Granulocyte % 59.2 % 38-83 Lymphocyte % 29.9 % 25-47 Monocyte % 6.4 % 1-9 Eosinophil % 3.8 % 0-6 Basophil % 0.7 % 0-2 Nucleated Red Blood Cells % 0.1 Laboratory test finding 01/24/2015 Troponin-I (TnI) 0.00 ng/mL <0.03 3 Comp Metabolic Panel 01/24/2015 Sodium 134 mmol/L 133-145 Chloride 100 mmol/L Low 101-111 Co2 Carbon Dioxide 28 mmol/L 22-32 Glucose 86 mg/dL 70-100 Blood Urea Nitrogen 22 mg/dL 6-24 Creatinine 1.33 mg/dL High 0.67-1.17 BUN/Creatinine Ratio 16.5 8-20 Calcium 9.1 mg/dL 8.6-10.3 Total Protein 6.7 g/dL 6.4-8.9 Albumin 4.2 g/dL 3.2-5.2 Globulin 2.5 g/dL 2-4 Albumin/Globulin Ratio 1.7 1-3 Total Bilirubin 0.50 mg/dL 0.2-1.0 Alkaline Phosphatase 75 U/L 34-104 Alt 28 U/L 7-52 Egfr Non- 54.5 >60 Egfr 70.1 >60 4 Potassium TNP mmol/L 3.5-5.0 5 Anion Gap TNP mmol/L 2-11 Ast TNP U/L 13-39 6 Laboratory test finding 01/24/2015 Magnesium TNP mg/dL 1.9-2.7 7 TSH (Thyroid Stim Horm) 1.81 ?IU/mL 0.34-5.60 Inr/Protime 01/24/2015 Inr 0.89 0.78-1.07 Laboratory test finding 01/24/2015 D Dimer Quantitative < 200 ng/mL Less Than 230 8 Lamotrigine (Lamictal) 6.0 g/mL 2.5 - 15.0 9 Creatinine 08/20/2013 Creatinine 0.98 mg/dL 0.67-1.17 Egfr Non- 77.8 >60 Egfr 100.0 >60 10 Laboratory test finding 08/20/2013 Phenytoin 11.8 g/mL 10.0-20.0 Basic Metabolic Panel 06/08/2013 Sodium 135 mmol/L 133-145 Potassium 4.2 mmol/L 3.7-5.6 Chloride 100 mmol/L Low 101-111 Co2 Carbon Dioxide 31 mmol/L 22-32 Anion Gap 4 mmol/L 2-11 Glucose 163 mg/dL High 70-100 Blood Urea Nitrogen 18 mg/dL 6-24 Creatinine 1.05 mg/dL 0.67-1.17 BUN/Creatinine Ratio 17.1 8-20 Calcium 8.5 mg/dL Low 8.6-10.3 Egfr Non- 72.0 >60 Egfr 92.7 >60 11 Laboratory test finding 06/08/2013 Phenytoin 6.8 g/mL Low 10.0-20.0 Creatinine 02/27/2013 Creatinine 1.00 mg/dL 0.50-1.40 Egfr Non- 76.2 >60 Egfr 98.0 >60 12 Laboratory test finding 02/16/2013 Phenytoin 7.8 g/mL Low 10.0-20.0 13 1 SEE RESULT BELOW Name: PAULINE ADAIR : [address]: Horace Vazquez MD Acct: [id number] Unit: [id number] AGE: 66 Location: [place] [address] Re08/16/16 Dis: 08/17/16 SEX: M Status: DIS Rohit SPEC: [id number] MACKENZIE: 08/16/16- SUBM DR: Horace Vazquez MD REQ: [id number] RECD: 08/16/16 STATUS: SOUT _ ORDERED: LEVEL 3 FINAL DIAGNOSIS Vermiform appendix, appendectomy: -- Acute appendicitis with periappendicitis. PRE-OPERATIVE DIAGNOSIS Acute appendicitis GROSS DESCRIPTION The specimen is received in formalin labeled, Appendix, and consists of a 4.4 cm appendix with moderate attached mesoappendix. The external diameter ranges from 0.9 cm to 1.3 cm in the proximal specimen. The serosa is shaggy to focally smooth rooney-jaimes with adhesions and red-brown blood clot. The lumen measures up to 0.4 cm and contains hemorrhagic debris. The mucosa is rooney-pink with rare focal hemorrhage and the wall thickness measures up to 0.2 cm. Animal Physiologist sections, one cassette. Signed (signature on file) oJrje Menchaca MD 1326 END OF REPORT * ML=Testing performed at Main Lab DEPARTMENT OF PATHOLOGY, [address] [place] [id number] Jorje Menchaca M.D. Director [facility] # [id number] 2 Acute inflammation: >10.00 3 Reference Range and Interpretation: TnI (ng/mL) Interpretation Less Than 0.03 ng/mL Not supportive of diagnosis of [place] 0.03 - 0.50 ng/mL Indeterminate: suggest serial studies if clinically indicated. Greater than 0.5 ng/mL Consistent with diagnosis of [place] 4 Because ethnic data is not always readily available, this report includes an eGFR for both -Americans and non- Americans. The National Kidney Disease Education Program (NKDEP) does not endorse the use of the MDRD equation for patients that are not between the ages of 18 and 70, are , have extremes of body size, muscle mass, or nutritional status, or are non- or non-. According to the National Kidney Foundation, irrespective of diagnosis, the stage of the disease is based on the level of kidney function: Stage Description GFR(mL/min/1.73 m(2)) 1 Kidney damage with normal or decreased GFR 90 2 Kidney damage with mild decrease in GFR 60-89 3 Moderate decrease in GFR 30-59 4 Severe decrease in GFR 15-29 5 Kidney failure <15 (or dialysis) 5 Unable to report test result due to hemolysis. 6 Unable to report test result due to hemolysis. 7 Unable to report test result due to hemolysis. 8 Please note: The following may produce a false positive D Dimer test: - Rheumatoid factor greater than 60 IU/ml - Plasma hemoglobin greater than 0.05 gm/dl - Bilirubin greater than 50 mg/dl - Lipids greater than 1000 mg/dl - FDP greater than 20 ug/ml 9 Test Performed by: [facility] [address] Irrigating Pump Operator: Juan Feliciano II, M.D., Ph.D. 10 Because ethnic data is not always readily available, this report includes an eGFR for both -Americans and non- Americans. The National Kidney Disease Education Program (NKDEP) does not endorse the use of the MDRD equation for patients that are not between the ages of 18 and 70, are , have extremes of body size, muscle mass, or nutritional status, or are non- or non-. According to the National Kidney Foundation, irrespective of diagnosis, the stage of the disease is based on the level of kidney function: Stage Description GFR(mL/min/1.73 m(2)) 1 Kidney damage with normal or decreased GFR 90 2 Kidney damage with mild decrease in GFR 60-89 3 Moderate decrease in GFR 30-59 4 Severe decrease in GFR 15-29 5 Kidney failure <15 (or dialysis) 11 Because ethnic data is not always readily available, this report includes an eGFR for both -Americans and non- Americans. The National Kidney Disease Education Program (NKDEP) does not endorse the use of the MDRD equation for patients that are not between the ages of 18 and 70, are , have extremes of body size, muscle mass, or nutritional status, or are non- or non-. According to the National Kidney Foundation, irrespective of diagnosis, the stage of the disease is based on the level of kidney function: Stage Description GFR(mL/min/1.73 m(2)) 1 Kidney damage with normal or decreased GFR 90 2 Kidney damage with mild decrease in GFR 60-89 3 Moderate decrease in GFR 30-59 4 Severe decrease in GFR 15-29 5 Kidney failure <15 (or dialysis) 12 Because ethnic data is not always readily available, this report includes an eGFR for both -Americans and non- Americans. The National Kidney Disease Education Program (NKDEP) does not endorse the use of the MDRD equation for patients that are not between the ages of 18 and 70, are , have extremes of body size, muscle mass, or nutritional status, or are non- or non-. According to the National Kidney Foundation, irrespective of diagnosis, the stage of the disease is based on the level of kidney function: Stage Description GFR(mL/min/1.73 m(2)) 1 Kidney damage with normal or decreased GFR 90 2 Kidney damage with mild decrease in GFR 60-89 3 Moderate decrease in GFR 30-59 4 Severe decrease in GFR 15-29 5 Kidney failure <15 (or dialysis) 13 The detection limit for Phenytoin is 2.5 mcg/ml . Values less than 2.5 mcg/ml cannot be accurately measured. Procedures Date CPT Code Description Status 08/16/2016 17710 Laparoscopy, Surgical, Appendectomy Completed 08/16/2016 80343 Laparoscopy, Surgical, Appendectomy Completed 02/04/2015 21549 ECHO Stress Test Incl Perf Contiuous ekg Monitoring Completed W/Phys Superv 03/19/2014 55719 Polysomnography Sleep Staging 4+ Parameters Completed 01/12/2013 36153 EEG Recording Awake & Asleep Completed Encounters Type Date Location Provider CPT E/M Dx Office Visit 08/01/2017 [facility] [address] G40.209 9:30a D18.02 R25.1 Office Visit 01/19/2017 3:30p [facility] [place] [address] G40.209 D18.02 Office Visit 08/16/2016 7:00a [facility] FREDI Perez 17322 K35.80 Of News Clerk Office Visit 07/19/2016 11:30a [facility] [place] [address] G40.209 Services Of News Clerk D18.02 Office Visit 01/19/2016 10:30a [facility] [place] [address] G40.209 Services Of News Clerk D18.02 Office Visit 08/15/2015 10:30[place] [address] G40.209 Services Of News Clerk D18.02 Office Visit 05/14/2015 10:30[place] [address] G40.209 Services Of News Clerk D18.02 R33.9 Office Visit 01/22/2015 3:00p [place] [address] G40.209 Services Of News Clerk D18.02 Office Visit 01/07/2015 8:30a [facility] [place] [address] G40.209 Services Of News Clerk Office Visit 11/05/2014 8:30a [facility] [place] [address] 345.40 Services Of News Clerk 228.02 Office Visit 10/08/2014 8:30a [facility] Ana Luisa Bautista [address]15 345.40 Of [facility] MANAGER PRESENTATION Office Visit 07/30/2014 10:15a [facility] Fan Shahid 04171 345.40 May Frank 228.02 Office Visit 02/13/2014 10:45a [facility] Fan Frank, 66178 345.40 Services Of [facility] May Office Visit 04/23/2013 11:00a [facility] Joni Garcia, 87848 237.5 Of [facility] Velvet.Rudy 345.10 296.12 Office Visit 02/16/2013 3:40p [facility] Joni Garcia, 48371 237.5 Of [facility] Velvet.Rudy 345.10 Office Visit 01/15/2013 12:12p [facility] Assoc,pc Ken Saucedo, 73833 345.10 Hospitalists M.DKatlyn 430 237.5 311 Office Visit 01/14/2013 12:12p [facility] [place], [address] 345.10 Assoc, Hospitalists M.DKatlyn 430 237.5 311 Office Visit 01/13/2013 12:12p [facility], [address]16 345.10 Assoc, Hospitalists M.DKatlyn 430 237.5 311 Office Visit 01/12/2013 12:11p [facility], 12831 237.5 Assoc, Hospitalists M.DKatlyn 311 345.10 Office Visit 01/11/2013 12:11p [facility]oc, Bashir Diaz, 76681 237.5 Hospitalists N.P. 311 345.10 Plan of Care Future Appointment(s):01/31/2018 2:00 pm - Fan Frank M.D. at [facility] - Princess Michel, MDM79.602 Pain in left armFollow up::Recommendations:on exam today you have isolated weakness of external rotation of the left shoulder and some numbnessto pinprick in the left shoulder also. EMG/nerve conduction could help to know whether there is a nerve injury or inflammation contributing to this but you are going to see how you do on the antibiotics and call us back if things are not getting better so we can order this testR53.1 LlhyaglgZ58.209 Local-rel symptc epi w cmplx prt seiz,not ntrct,w/o stat epiRecommendations:long-term video EEG monitoring is available at this hospital and if you did this the goal would be to try to diagnose the auras as non-epileptic versus epileptic, which could influence treatment choices. Sometimes auras which do not interrupt consciousness do not have an electrical correlate on scalp EEG even when they are seizures
--- OUTSIDE RECORDS SUMMARY | 2017-11-22 22:55 | XMS REPORT ---
:1950 External Reference #:[id number] Author Organization [facility] Address [address] [place] [address] Phone [phone] Care Team Providers Name Role Phone Luis Eduardo Broderick MD Care Team Information Application Security Architect Unavailable Luis Eduardo Broderick MD Primary Care Physician Unavailable Payers Type Date Identification Numbers Payment Provider Subscriber Medicare Primary Effective: Policy Number: Medicare [place] Pauline Portillo 2017 [id number] Expires: 2017 PayID: [id number] [address] [place] [address] Medigap Part B Effective: Policy Number: Medicare Dasha Portillo 2017 [id number] PayID: [id number] [address] [place] [address] Medigap Part B Policy Number: [id number] Out Of Area [facility] Pauline Portillo Group Number: [id number] [address] [address] PayID: [id number] [place] [address] Problems Date Description Provider Status Onset: 06/30/2011 Malaise and fatigue Luis Eduardo Broderick M.D. Active Onset: 10/24/2017 Muscle pain Adolph Hwang M.D. Active Onset: 10/24/2017 Neck pain Adolph Hwang M.D. Active Onset: 10/24/2017 Shoulder joint pain Adolph Hwang M.D. Active Onset: 01/27/2015 Chest pain Luis Eduardo Broderick M.D. Active Family History Date Family Member(s) Problem(s) Comments Father Alcoholism Father [place] Mother Bipolar Disorder Mother Alcoholism Mother [place] First Brother Alcoholism Social History Type Date Description Comments Smoking Patient is a former smoker Allergies, Adverse Reactions, Alerts Date Description Reaction Status Severity Comments 06/30/2011 Penicillin rash active 08/22/2012 Clindamycin heart racing, bloody stools active 04/10/2015 Benzodiazepines memory loss active Medications Medication Date Status Form Strength Qnty SIG Indications Ordering Provider Doxycycline 10/24/ Active Capsules 100mg 30caps take one Adolph F. Hyclate 2018 capsule Shallish, by mouth M.D. twice a day Benadryl Allergy 10/24/ Active Tablets 25mg Adolph F. 2018 Shallish, M.D. Diphenhydramine 10/24/ Active Capsules 25mg 30caps 1-2 by Adolph F. HCL 2018 mouth at Shallish, bedtime M.D. as needed Lamictal / Active Tablets 100mg 60tabs 1-1/2 po Unknown 0000 qam, 2 po qpm Advil / Active Tablets 200mg 1 by Unknown 0000 mouth every 4 hours as needed Naproxen 10/21/ Hx Tablets 375mg 30tabs take one M79.1 Shanti Bello 2018 - by mouth Alcides, 10/23/ twice BALE PILER 2018 daily as needed for pain Clindamycin HCL 07/11/ Hx Capsules 150mg 21caps 1 po tid 521.09 Luis Eduardo Broderick, 07/18/ M.DKatlyn 2011 Doxycycline 07/05/ Hx Tablets DR 100mg 56tabs 1 po bid Hassan Hyclate Tonny Howard, M.DKatlyn 2011 Doxycycline 07/05/ Hx Capsules 100mg 56caps use 1bid Hassan Hyclate Tonny Howard, M.DKatlyn 2012 Citalopram / Hx Tablets 10mg 90tabs 1 po qd Unknown Hydrobromide 0000 - 2014 Vital Signs Date Vital Result Comment 10/24/2017 BP Systolic 112 mmHg BP Diastolic 72 mmHg Heart Rate 94 /min Body Temperature 99.1 F Height 67 inches 5'7" 10/21/2017 BP Systolic 122 mmHg BP Diastolic 82 mmHg Heart Rate 92 /min Body Temperature 98.2 F Height 67 inches 5'7" Weight 155.12 lb BMI (Body Mass Index) 24.3 kg/m2 06/30/2017 BP Systolic 110 mmHg BP Diastolic 70 mmHg Heart Rate 84 /min Body Temperature 97.8 F Respiratory Rate 18 /min Height 67 inches 5'7" Weight 165.00 lb BMI (Body Mass Index) 25.8 kg/m2 02/03/2017 BP Systolic 108 mmHg BP Diastolic 60 mmHg Heart Rate 80 /min Respiratory Rate 16 /min Height 67 inches 5'7" 01/18/2017 BP Systolic 120 mmHg BP Diastolic 90 mmHg Heart Rate 76 /min Body Temperature 98.0 F Respiratory Rate 18 /min Height 67 inches 5'7" Weight 155.00 lb BMI (Body Mass Index) 24.3 kg/m2 12/14/2016 BP Systolic 100 mmHg BP Diastolic 64 mmHg Heart Rate 78 /min Body Temperature 98.3 F Respiratory Rate 16 /min Height 67 inches 5'7" Weight 156.50 lb BMI (Body Mass Index) 24.5 kg/m2 04/10/2015 BP Systolic 106 mmHg BP Diastolic 60 mmHg Heart Rate 76 /min Body Temperature 97.2 F Respiratory Rate 16 /min Height 67 inches 5'7" Weight 163.00 lb BMI (Body Mass Index) 25.5 kg/m2 01/27/2015 BP Systolic 116 mmHg BP Diastolic 60 mmHg Heart Rate 88 /min Body Temperature 98.2 F Respiratory Rate 16 /min Height 67 inches 5'7" Weight 160.00 lb BMI (Body Mass Index) 25.1 kg/m2 01/23/2014 BP Systolic 114 mmHg BP Diastolic 64 mmHg Heart Rate 88 /min Body Temperature 96.6 F Respiratory Rate 16 /min Height 67 inches 5'7" Weight 154.00 lb BMI (Body Mass Index) 24.1 kg/m2 08/22/2012 BP Systolic 122 mmHg BP Diastolic 70 mmHg Heart Rate 72 /min Body Temperature 98.4 F Respiratory Rate 16 /min Height 67 inches 5'7" Weight 160.00 lb BMI (Body Mass Index) 25.1 kg/m2 07/21/2011 BP Systolic 120 mmHg BP Diastolic 70 mmHg Heart Rate 84 /min Body Temperature 97.9 F Respiratory Rate 16 /min Height 67 inches 5'7" Weight 172.00 lb BMI (Body Mass Index) 26.9 kg/m2 07/12/2011 BP Systolic 114 mmHg BP Diastolic 70 mmHg Heart Rate 80 /min Body Temperature 97.6 F Respiratory Rate 16 /min Height 67 inches 5'7" Weight 171.00 lb BMI (Body Mass Index) 26.8 kg/m2 06/30/2011 BP Systolic 102 mmHg BP Diastolic 68 mmHg Heart Rate 88 /min Body Temperature 98.1 F Respiratory Rate 16 /min Height 67 inches 5'7" Weight 164.00 lb BMI (Body Mass Index) 25.7 kg/m2 Right Visual Acuity Distance 20/20 corrected Left Visual Acuity Distance 20/20 corrected Results Test Date Test Result H/L Range Note Laboratory test finding 10/24/2017 CK 53 U/L 38-174 Laboratory test finding 10/21/2017 Sedimentation Rate 12mm CBC Electronic Fma 10/21/2017 WBC 7.0 x10^3/UL 4.0-10.0 RBC 4.82 x10^6/UL 3.93-6.00 HGB 14.1 g/dL 12.0-17.0 HCT 41 % 35-50 MCV 84.2 fL 80.0-95.0 MCH 29.3 pg 25.6-32.2 MCHC 34.7 g/dL 32.2-36.0 RDW-CV 12.1 % 11.6-14.4 PLT 229 x10^3/UL 163-400 MPV 9.4 fL 9.4-12.4 Wes# 4.78 x10^3/UL 1.56-6.13 Lymph# 1.49 x10^3/UL 1.18-3.74 [place]# 0.38 x10^3/UL 0.24-0.82 Eos # 0.3 x10^3/UL 0.0-0.5 Baso # 0.02 x10^3/UL 0.01-0.08 Wes% 68.5 % 34.0-70.0 Lymph % 21.3 % 20.0-52.0 [place]% 5.4 % 5.0-12.0 Eos% 4.4 % 0.7-7.0 Baso% 0.3 % 0.1-1.2 Laboratory test finding 10/21/2017 Vitamin B-12 763 pg/mL 230-1050 Comprehensive Metabolic Prof 10/21/2017 Sodium 137 mEq/L 134-149 Potassium 4.2 mEq/L 3.6-5.5 Chloride 101 mEq/L 94-112 Carbon Dioxide 27 mEq/L 21-32 Glucose 106 mg/dL High 70-105 BUN 23 mg/dL 6-26 Creatinine 1.2 mg/dL 0.6-1.4 BUN/Creat Ratio 19.2 CALC 8.0-36.0 Calcium 8.9 mg/dL 8.6-10.2 Total Protein 6.8 g/dL 6.4-8.3 Albumin 4.3 g/dL 3.8-5.5 Globulin 2.5 g/dL 2.0-4.8 A/G Ratio 1.7 CALC 0.6-2.3 Alk. Phosphatase 86 U/L 22-95 Alt (SGPT) 22 U/L 7-35 Ast (Sgot) 22 U/L 5-34 Total Bilirubin 0.4 mg/dL 0.2-1.3 GFR Non- >60 ml/min/1.73m^ >=60 GFR >60 ml/min/1.73m^ >=60 Laboratory test finding 10/21/2017 C-Reactive Protein, 1.3 mg/L 0.0-4.9 1 Quant Laboratory test finding 10/21/2017 Lamotrigine (Lamictal), 5.2 ug/mL 2.0- 20.0 1, 2 Serum Lyme, Western Blot, 10/21/2017 IgG P93 Ab. Absent 1 Serum IgG P66 Ab. Absent 1 IgG P58 Ab. Present 1 IgG P45 Ab. Absent 1 IgG P41 Ab. Present 1 IgG P39 Ab. Present 1 IgG P30 Ab. Absent 1 IgG P28 Ab. Absent 1 IgG P23 Ab. Present 1 IgG P18 Ab. Present 1 Lyme IgG WB Interp. Positive 1, 3 IgM P41 Ab. Present 1 IgM P39 Ab. Absent 1 IgM P23 Ab. Absent 1 Lyme IgM WB Interp. Negative 1, 4 Jada Panel-LD ([facility]) 10/21/2017 Antinuclear Antibodies, Ifa Negative 1, 5 Anti-dsDNA Antibodies 1 IU/mL 0-9 1, 6 [id number] <pending> 1 Antiextractable Nuclear Antigens 10/21/2017 FISH PROTECTOR Antibodies <0.2 AI 0.0- 0.9 1 Yi Antibodies <0.2 AI 0.0-0.9 1 Sjogren's AB, Anti-SS-A/-SS-B 10/21/2017 Sjogren's Anti-SS-A <0.2 AI 0.0- 0.9 1 Sjogren's Anti-SS-B 0.3 AI 0.0-0.9 1 Rheumatoid Arthritis Factor 10/21/2017 Ra Latex Turbid. 14.8 IU/mL High 0.0-13.9 1 ([facility]) Laboratory test finding 07/19/2017 Thyroxine 5.70 g/mL Low 6.09-12.23 TSH (Thyroid Stim Horm) 2.13 mcIU/mL 0.34-5.60 B-Type Natriuretic Peptide BNP 15 pg/mL 7 CKMB 07/19/2017 CKMB ng/mL 3.9 ng/mL 0.6-6.3 Laboratory test finding 07/19/2017 Magnesium 2.0 mg/dL 1.9-2.7 Creatine Kinase(CK) 55 U/L 10-223 Troponin I 0.00 ng/mL <0.04 Laboratory test finding 07/19/2017 Troponin I 0.00 ng/mL <0.04 Urinalysis Profile 07/19/2017 Urine Color Yellow Urine Appearance Clear Urine Specific Rueter 1.010 1.010-1.030 Urine pH 6.0 5-9 Urine Urobilinogen Negative Negative Urine Ketones Trace Negative Urine Protein Negative Negative Urine Leukocytes Negative Negative Urine Blood Negative Negative Urine Nitrite Negative Negative Urine Bilirubin Negative Negative Urine Glucose Negative Negative Comp Metabolic Panel 07/19/2017 Sodium 138 mmol/L Low 139-145 Potassium 4.3 mmol/L 3.5-5.0 Chloride 105 mmol/L 101-111 Co2 Carbon Dioxide 28 mmol/L 22-32 Anion Gap 5 mmol/L 2-11 Glucose 95 mg/dL 70-100 Blood Urea Nitrogen 18 mg/dL 6-24 Creatinine 1.23 mg/dL High 0.67-1.17 BUN/Creatinine Ratio 14.6 8-20 Calcium 9.2 mg/dL 8.6-10.3 Total Protein 6.5 g/dL 6.4-8.9 Albumin 4.1 g/dL 3.2-5.2 Globulin 2.4 g/dL 2-4 Albumin/Globulin Ratio 1.7 1-3 Total Bilirubin 0.50 mg/dL 0.2-1.0 Alkaline Phosphatase 64 U/L 34-104 Alt 26 U/L 7-52 Ast 27 U/L 13-39 Egfr Non- 59.1 >60 Egfr 76.0 >60 8 CBC Auto Diff 07/19/2017 White Blood Count 4.9 10^3/uL 3.5-10.8 Red Blood Count 4.88 10^6/uL 4.0-5.4 Hemoglobin 14.4 g/dL 14.0-18.0 Hematocrit 42 % 42-52 Mean Corpuscular Volume 85 fL 80-94 Mean Corpuscular Hemoglobin 30 pg 27-31 Mean Corpuscular HGB Conc 35 g/dL 31-36 Red Cell Distribution Width 13 % 10.5-15 Platelet Count 181 10^3/uL 150-450 Mean Platelet Volume 7.8 um3 7.4-10.4 Abs Neutrophils 2.8 10^3/uL 1.5-7.7 Abs Lymphocytes 1.5 10^3/uL 1.0-4.8 Abs Monocytes 0.4 10^3/uL 0-0.8 Abs Eosinophils 0.2 10^3/uL 0-0.6 Abs Basophils 0 10^3/uL 0-0.2 Abs Nucleated RBC 0 10^3/uL Granulocyte % 57.5 % 38-83 Lymphocyte % 30.7 % 25-47 Monocyte % 7.6 % High 0-7 Eosinophil % 3.8 % 0-6 Basophil % 0.4 % 0-2 Nucleated Red Blood Cells % 0.1 Laboratory test finding 07/19/2017 Partial Thrombo Time 29.2 seconds 26.0 -36.3 PTT Lactic Acid 0.7 mmol/L 0.5-2.0 9 Complete Blood Count 01/18/2017 WBC 5.3 x10^3/UL 3.6-9.6 RBC 5.08 x10^6/UL 3.90-5.70 HGB 14.2 g/dL 12.1-17.2 HCT 44 % 36-50 MCV 87.0 fL 82.2-97.4 MCH 28.0 pg 27.6-33.3 MCHC 33.1 g/dL 33.0-35.5 RDW 13.9 % High 11.6-13.7 PLT 214 x10^3/UL 150-400 MPV 6.7 fL Low 7.4-10.4 Gran # 3.4 x10^3/UL 1.5-7.2 Lymph# 1.7 x10^3/UL 0.7-4.9 [place]# 0.2 x10^3/UL 0.1-0.9 Gran % 61.2 % 42.2-75.2 Lymph % 33.3 % 20.5-51.1 [place]% 5.5 % 1.7-9.3 Laboratory test finding 01/18/2017 PSA 0.6 ng/mL 0.0-4.0 Lipid Profile 01/18/2017 Cholesterol 239 mg/dL High 120-200 Triglycerides 93 mg/dL 30-200 HDL Cholesterol 70 mg/dL 30-70 LDL (Calculated) 150 CALC High 0-129 VLDL Cholesterol 19 mg/dL 0-50 HDL Risk Factor 3.4 CALC 0.0-4.4 Laboratory test finding 01/18/2017 HCV AB non-reactive non-reactive Laboratory test finding 12/16/2016 TSH (Thyroid Stim 1.47 mcIU/mL 0.34- 5.60 Horm) Free T4 (Free Thyroxine) 0.86 ng/dL 0.61-1.12 Blood Culture SEE RESULT BELOW 10 Lyme Disease Serology Negative Negative 11 Comp Metabolic Panel 12/16/2016 Sodium 137 mmol/L 133-145 Potassium 4.0 mmol/L 3.5-5.0 Chloride 102 mmol/L 101-111 Co2 Carbon Dioxide 29 mmol/L 22-32 Anion Gap 6 mmol/L 2-11 Glucose 81 mg/dL 70-100 Blood Urea Nitrogen 19 mg/dL 6-24 Creatinine 1.13 mg/dL 0.67-1.17 BUN/Creatinine Ratio 16.8 8-20 Calcium 9.3 mg/dL 8.6-10.3 Total Protein 6.5 g/dL 6.4-8.9 Albumin 4.3 g/dL 3.2-5.2 Globulin 2.2 g/dL 2-4 Albumin/Globulin Ratio 2.0 1-3 Total Bilirubin 0.60 mg/dL 0.2-1.0 Alkaline Phosphatase 54 U/L 34-104 Alt 21 U/L 7-52 Ast 23 U/L 13-39 Egfr Non- 65.3 >60 Egfr 84.0 >60 12 CBC Auto Diff 12/16/2016 White Blood Count 6.7 10^3/uL 3.5-10.8 Red Blood Count 4.79 10^6/uL 4.0-5.4 Hemoglobin 13.7 g/dL Low 14.0-18.0 Hematocrit 41 % Low 42-52 Mean Corpuscular Volume 86 fL 80-94 Mean Corpuscular Hemoglobin 29 pg 27-31 Mean Corpuscular HGB Conc 33 g/dL 31-36 Red Cell Distribution Width 13 % 10.5-15 Platelet Count 209 10^3/uL 150-450 Mean Platelet Volume 8 um3 7.4-10.4 Abs Neutrophils 3.7 10^3/uL 1.5-7.7 Abs Lymphocytes 2.3 10^3/uL 1.0-4.8 Abs Monocytes 0.3 10^3/uL 0-0.8 Abs Eosinophils 0.3 10^3/uL 0-0.6 Abs Basophils 0.1 10^3/uL 0-0.2 Abs Nucleated RBC 0 10^3/uL Granulocyte % 54.9 % 38-83 Lymphocyte % 34.2 % 25-47 Monocyte % 5.0 % 1-9 Eosinophil % 5.1 % 0-6 Basophil % 0.8 % 0-2 Nucleated Red Blood Cells % 0 Urinalysis Profile 12/16/2016 Urine Color Colorless Urine Appearance Clear Urine Specific Rueter 1.004 Low 1.010-1.030 Urine pH 5.0 5-9 Urine Urobilinogen Negative Negative Urine Ketones Negative Negative Urine Protein Negative Negative Urine Leukocytes Negative Negative Urine Blood Negative Negative Urine Nitrite Negative Negative Urine Bilirubin Negative Negative Urine Glucose Negative Negative Urinalysis Profile 08/16/2016 Urine Color Yellow Urine Appearance Clear Urine Specific Rueter 1.008 Low 1.010-1.030 Urine pH 5.0 5-9 Urine Urobilinogen Negative Negative Urine Ketones 2+ Negative Urine Protein Negative Negative Urine Leukocytes Negative Negative Urine Blood Negative Negative Urine Nitrite Negative Negative Urine Bilirubin Negative Negative Urine Glucose Negative Negative Comp Metabolic Panel 08/16/2016 Sodium 135 mmol/L 133-145 Chloride 101 mmol/L 101-111 Co2 Carbon Dioxide 25 mmol/L 22-32 Glucose 95 mg/dL 70-100 Blood Urea Nitrogen 16 mg/dL 6-24 Creatinine 1.10 mg/dL 0.67-1.17 BUN/Creatinine Ratio 14.5 8-20 Calcium 9.5 mg/dL 8.6-10.3 Total Protein 7.0 g/dL 6.4-8.9 Albumin 4.4 g/dL 3.2-5.2 Globulin 2.6 g/dL 2-4 Albumin/Globulin Ratio 1.7 1-3 Total Bilirubin 0.90 mg/dL 0.2-1.0 Alkaline Phosphatase 53 U/L 34-104 Alt 41 U/L 7-52 Egfr Non- 67.4 >60 Egfr 86.7 >60 13 Potassium 4.1 mmol/L 3.5-5.0 Anion Gap 9 mmol/L 2-11 Ast 43 U/L High 13-39 Laboratory test finding 08/16/2016 Amylase 87 U/L 29-103 Lipase 20 U/L 11.0-82.0 C Reactive Protein 2.74 mg/L < 5.00 14 Lyme Disease Serology Negative Negative 15 CBC Auto Diff 08/16/2016 White Blood Count 16.9 10^3/uL High 3.5-10.8 Red Blood Count 5.05 10^6/uL 4.0-5.4 Hemoglobin 14.3 g/dL 14.0-18.0 Hematocrit 44 % 42-52 Mean Corpuscular Volume 87 fL 80-94 Mean Corpuscular Hemoglobin 28 pg 27-31 Mean Corpuscular HGB Conc 33 g/dL 31-36 Red Cell Distribution Width 13 % 10.5-15 Platelet Count 193 10^3/uL 150-450 Mean Platelet Volume 8 um3 7.4-10.4 Abs Neutrophils 14.6 10^3/uL High 1.5-7.7 Abs Lymphocytes 1.5 10^3/uL 1.0-4.8 Abs Monocytes 0.7 10^3/uL 0-0.8 Abs Eosinophils 0.1 10^3/uL 0-0.6 Abs Basophils 0 10^3/uL 0-0.2 Abs Nucleated RBC 0 10^3/uL Granulocyte % 86.5 % High 38-83 Lymphocyte % 8.6 % Low 25-47 Monocyte % 3.9 % 1-9 Eosinophil % 0.8 % 0-6 Basophil % 0.2 % 0-2 Nucleated Red Blood Cells % 0 Laboratory test finding 04/10/2015 PSA 0.5 ng/mL 0.0-4.0 Ua - Non Micro (Fma) 04/10/2015 Appearance CLEAR Color YELLOW Glucose, Urine (Fma/CMC/CTX) NEG Bilirubin NEG Ketones NEG SP Grav 1.015 Blood NEG PH 8.0 Protein NEG Urobil 0.2 Nitrite NEG Leukocytes (Fma/CMC/[facility]rex) NEG Comp Metabolic Panel 01/24/2015 Sodium 134 mmol/L [...] Egfr Non- 54.5 >60 Egfr 70.1 >60 16 Potassium TNP mmol/L 3.5-5.0 17 Anion Gap TNP mmol/L 2-11 Ast TNP U/L 13-39 18 Laboratory test finding 01/24/2015 Magnesium TNP mg/dL 1.9-2.7 19 TSH (Thyroid Stim Horm) 1.81 ?IU/mL 0.34-5.60 Inr/Protime 01/24/2015 Inr 0.89 0.78-1.07 Laboratory test 01/24/2015 D Dimer Quantitative < 200 ng/mL Less Than 230 20 finding Lamotrigine (Lamictal) 6.0 g/mL 2.5 - 15.0 21 Laboratory test finding 01/24/2015 Ast Redraw 37 U/L 13-39 C Reactive Protein 3.37 mg/L < 5.00 22 Potassium Redraw 4.4 mmol/L 3.5-5.0 Magnesium 1.8 [...] Cells % 0.1 Laboratory test finding 01/24/2015 Troponin I 0.00 ng/mL <0.03 23 Laboratory test finding 10/23/2014 Lamotrigine (Lamictal) 6.1 g/mL 2.5 - 15.0 24 Laboratory test finding 10/16/2014 Lyme Disease Serology Negative Negative 25 Erlichia Chaffeensis Abs 10/16/2014 Ehrlichia chaffeensis <1:64 Igg,Igm Ab IgG Ehrlichia chaffeensis Ab IgM <1:20 Ehrlichia chaffeensis Interp See Comment 26 Creatinine 08/20/2013 Creatinine 0.98 mg/dL 0.67-1.17 Egfr Non- 77.8 >60 Egfr 100.0 >60 27 Laboratory test finding 08/20/2013 Phenytoin 11.8 g/mL [...] Egfr Non- 72.0 >60 Egfr 92.7 >60 28 Laboratory test finding 06/08/2013 Phenytoin 6.8 g/mL Low 10.0-20.0 Creatinine 02/27/2013 Creatinine 1.00 mg/dL 0.50-1.40 Egfr Non- 76.2 >60 Egfr 98.0 >60 29 Laboratory test finding 01/11/2013 Magnesium 2.2 mg/dL 1.7-2.6 Lactic Acid 2.8 mmol/L High 0.5-1.6 30 Creatine Kinase 61 U/L 0-200 Troponin I 0.01 ng/mL 0-0.06 31 Alcohol < 10 mg/dL Less Than 10 32 TSH (Thyroid Stimulating Horm) 1.41 miu/mL 0.34-5.60 CBC Auto Diff 01/11/2013 White Blood Count 10.0 10^3/uL 4.8-10.8 Red Blood Count 4.98 10^6/uL 4.0-5.4 Hemoglobin 14.8 g/dL 14.0-18.0 Hematocrit 44 % 42-52 Mean Corpuscular Volume 88 fL 80-94 Mean Corpuscular Hemoglobin 30 pg 27-31 Mean Corpuscular HGB Conc 34 g/dL 31-36 Red Cell Distribution Width 13 % 10.5-15 Platelet Count 199 10^3/uL 150-450 Mean Platelet Volume 9 um3 7.4-10.4 Abs Neutrophils 7.0 10^3/uL 1.5-7.7 Abs Lymphocytes 2.2 10^3/uL 1.0-4.8 Abs Monocytes 0.5 10^3/uL 0-0.8 Abs Eosinophils 0.2 10^3/uL 0-0.6 Abs Basophils 0 10^3/uL 0-0.2 Abs Nucleated RBC 0.01 10^3/uL Granulocyte % 70.2 % 38-83 Lymphocyte % 22.1 % Low 25-47 Monocyte % 5.0 % 1-9 Eosinophil % 2.3 % 0-6 Basophil % 0.4 % 0-2 Nucleated Red Blood Cells % 0.1 Inr/Protime 01/11/2013 Inr 0.92 0.87-0.97 Laboratory test finding 01/11/2013 Activated Partial 24.9 seconds 22.18- 37.18 Thrombo Time Comp Metabolic Panel 01/11/2013 Sodium 137 mmol/L 133-145 Potassium 3.6 mmol/L 3.5-5.0 Chloride 100 mmol/L Low 101-111 Co2 Carbon Dioxide 28.0 mmol/L 22-32 Anion Gap 9.0 mmol/L 2-11 Glucose 133 mg/dL High 70-100 Blood Urea Nitrogen 29 mg/dL High 6-24 Creatinine 1.70 mg/dL High 0.50-1.40 BUN/Creatinine Ratio 17.1 8-20 Calcium 9.4 mg/dL 8.1-9.9 Total Protein 6.7 g/dL 6.2-8.1 Albumin 4.0 g/dL 3.2-5.2 Globulin 2.7 g/dL 2-4 Albumin/Globulin Ratio 1.5 1-3 Total Bilirubin 0.8 mg/dL 0.4-1.5 Alkaline Phosphatase 59 U/L 30-110 Alt 28 U/L 14-54 Ast 31 U/L 12-42 Egfr Non- 41.3 >60 Egfr 53.1 >60 33 Ict Hemoccult ([facility]) 07/12/2011 Ict Hemoccult (1) 07/04/11 neg Ict Hemoccult-(2) 07/07/11 neg Ict-Hemoccult (3) 07/09/11 neg Laboratory test finding 06/30/2011 Sed Rate (a/[facility]/Centrex) 8mm CBC Electronic ([facility]) 06/30/2011 WBC 8.3 3.6-9.6 RBC 5.00 3.90-5.70 Hemoglobin (Fma/CMC/CTX) 14.5 g/dL 12.1 - 17.2 Hematocrit (a/CMC/CTX) 43.4 % 36.1 - 50.3 Platelets 274 10^3/ul 150-400 Lymph% 23.8 20.5-51.1 Mixed% 7.1 Neutrophils % 69.1 Mean Corpuscular Vol 87 82.2-97.4 Mean Corpuscular Hemoglobin 29.0 27.6-33.3 Mean Corpuscular Hemo Concen 33.4 32.0-36.0 RDW 11.9 11.6-13.7 Mean Platelet Volume 7.0 6.5-11.0 Ua - Micro ([facility]) 06/30/2011 Appearance CLEAR Color YELLOW Glucose NEG Bilirubin NEG Ketones NEG SP Grav 1.025 Blood TRACE-INTACT PH 6.0 Protein NEG Urobil 0.2 Nitrite NEG Leukocytes (Fma/CMC/[facility]) NEG Hyaline - /Lpf Granular - /Lpf WBC ([facility]) - RBC 0-1 Mucus SM AMT /Lpf Epith - /Lpf Bacteria - /Hpf Amorphous - /Lpf Crystals, Fluid (Fma/CMC/CTX) - Z#Comments - Ehrlichia AB Panel (CTX) 06/30/2011 E. chaffeensis ([facility]) IgG Negative Neg :<1:64 Titer E. chaffeensis ([facility]) IgM Titer Negative Neg:<1:20 34 Hge IgG Titer Negative Neg:<1:64 35 Hge IgM Titer Negative Neg:<1:20 36 Ebv Acute Infection Abs 06/30/2011 Ebv Ab Vca, IgM <0.2 AI 0.0-0.8 37 Ebv Early Antigen Ab, IgG 6.3 AI High 0.0-0.8 38 Ebv Ab Vca, IgG >8.0 AI High 0.0-0.8 39 Ebv Nuclear Antigen Ab, IgG >8.0 AI High 0.0-0.8 40 Interpretation: SEE NOTE 41 Lyme Western Blot Ser 06/30/2011 IgG P93 Ab. Absent IgG P66 Ab. Absent IgG P58 Ab. Absent IgG P45 Ab. Absent IgG P41 Ab. Present IgG P39 Ab. Absent IgG P30 Ab. Absent IgG P28 Ab. Absent IgG P23 Ab. Absent IgG P18 Ab. Absent Lyme IgG WB Interp. Negative 42 IgM P41 Ab. Absent IgM P39 Ab. Present IgM P23 Ab. Present Lyme IgM WB Interp. Positive 43 Laboratory test finding 06/30/2011 TSH 2.64 mIU/L 0.50-6.00 PSA 0.90 ng/mL 0.00-4.00 Comprehensive Metabolic Prof 06/30/2011 Albumin 4.4 g/dL 3.8-5.5 Alk. Phos. 72 U/L 22-95 Alt (SGPT) 30 U/L 10-40 Ast (Sgot) 27 U/L 5-34 BUN 24 mg/dL 6-26 Calcium 9.1 mg/dL 8.6-10.2 Chloride 103 mEq/L 94-112 Creatinine 1.3 mg/dL 0.6-1.4 Carbon Dioxide 30 mEq/L 21-32 Glucose 89 mg/dL 70-105 Sodium 140 mEq/L 134-149 Total Bilirubin 0.2 mg/dL 0.2-1.3 Total Protein 7.0 g/dL 6.3-8.1 Potassium 4.4 mEq/L 3.6-5.5 Globulin 2.6 g/dL 2.0-4.8 A/G Ratio 1.7 Calc 0.6-2.2 BUN/Creat Ratio 18.2 Calc 8.0-36.0 Lipid Profile 06/30/2011 Cholesterol 215 mg/dL High 120-200 HDL 45 mg/dL 30-70 Triglycerides 191 mg/dL 30-200 HDL Risk Factor 4.8 CALC High 0.0-4.0 LDL (Calculated) 131 CALC High 0-129 VLDL (Calculated) 38 mg/dL 0-50 1 3 sst 2 Detection Limit=1.0 3 Positive: 5 of the following Borrelia-specific bands: 18,23,28,30,39,41,45,58, 66, and 93. Negative: No bands or banding patterns which do not meet positive criteria. 4 Note: An equivocal or positive EIA result followed by a negative Western Blot result is considered NEGATIVE. An equivocal or positive EIA result followed by a positive Western Blot is considered POSITIVE by the CDC. Positive: 2 of the following bands: 23,39 or 41 Negative: No bands or banding patterns which do not meet positive criteria. Criteria for positivity are those recommended by CDC/ASTPHLD. p23=Osp C, p77=ovgdignmt Note: Sera from individuals with the following may cross react in the Lyme Western Blot assays: other spirochetal diseases (periodontal disease, leptospirosis, relapsing fever, yaws, and pinta); connective autoimmune (Rheumatoid Arthritis and Systemic Lupus Erythematosus and also individuals with Antinuclear Antibody); other infections ([place] Spotted Fever; Nuria-Greer Virus, and Cytomegalovirus). 5 Negative <1:80 Borderline 1:80 Positive >1:80 6 Negative <5 Equivocal 5 - 9 Positive >9 7 >100 to <200 pg/mL: likely compensated congestive heart failure (CHF) 200 to 400 pg/mL: likely moderate CHF >400 pg/mL: likely moderate to severe CHF 8 Because ethnic data is not always readily [...] 15-29 5 Kidney failure <15 (or dialysis) 9 [facility] Severe Sepsis and Septic Shock Management Bundle Measure requires all lactic acids initially measuring >2.0 mmol/L be repeated. 10 SEE RESULT BELOW Name: PAULINE PORTILLO : [address]: Mare Pete NP Acct: [id number] Unit: [id number] AGE: 66 Location: [facility] Re12/16/16 SEX: M Status: REG REF SPEC: [id number] [place]ACKENZIE: 12/16/16-1704 [facility] : Mare Pete NP REQ: [id number] RECD: 12/16/16 STATUS: COMP _ SOURCE: BLOOD,VENO SPDES: ORDERED: Blood Cult Procedure Result Reported Site Aerobic Culture Bottle Final 12/21/16- 8 ML No Growth Day 5 Anaerobic Culture Bottle Final 12/21/16- 1847 ML No Growth Day 5 * ML - MAIN LAB ([facility]) . END OF REPORT * ML=Testing performed at Main Lab DEPARTMENT OF PATHOLOGY, [address] [place] [address] Jorje Menchaca M.D. Director [facility] # [id number] 11 Serologic response to B. burgdorferi infection is not detected, but cannot rule out early infection during which low or undetectable antibody levels to B. burgdorferi may be present. If clinically indicated, a new serum specimen should be submitted in 7-14 days. Test Performed by: [address] [id number] 12 Because ethnic data is not always [...] 5 Kidney failure <15 (or dialysis) 13 Because ethnic data is not always readily [...] 15-29 5 Kidney failure <15 (or dialysis) 14 Acute inflammation: >10.00 15 Serologic response to B. burgdorferi infection is not detected, but cannot rule out early infection during which low or undetectable antibody levels to B. burgdorferi may be present. If clinically indicated, a new serum specimen should be submitted in 7-14 days. Test Performed by: [address] [id number] 16 Because ethnic data is not always readily [...] 15-29 5 Kidney failure <15 (or dialysis) 17 Unable to report test result due to hemolysis. 18 Unable to report test result due to hemolysis. 19 Unable to report test result due to hemolysis. 20 Please note: The following may produce a false positive D Dimer test: - Rheumatoid factor greater than 60 IU/ml - Plasma hemoglobin greater than 0.05 gm/dl - Bilirubin greater than 50 mg/dl - Lipids greater than 1000 mg/dl - FDP greater than 20 ug/ml 21 Test Performed by: [place] [address] [employer]: Juan Feliciano II, M.D., Ph.D. 22 Acute inflammation: >10.00 23 Reference Range and Interpretation: TnI (ng/mL) Interpretation Less Than 0.03 ng/mL Not supportive of diagnosis of [place] 0.03 - 0.50 ng/mL Indeterminate: suggest serial studies if clinically indicated. Greater than 0.5 ng/mL Consistent with diagnosis of [place] 24 Test Performed by: [place] [address] [employer]: Juan Feliciano II, M.D., Ph.D. 25 Serologic response to B. burgdorferi infection is not detected, but cannot rule out early infection during which low or undetectable antibody levels to B. burgdorferi may be present. If clinically indicated, a new serum specimen should be submitted in 7-14 days. Test Performed by: [place] [address] [employer]: Juan Feliciano II, M.D., Ph.D. 26 ANTIBODY NOT DETECTED REFERENCE RANGE: IgG <1:64 IgM <1:20 Ehrlichia chaffeensis has been identified as the causative agent of Human Monocytic Ehrlichiosis (HME). Infected individuals produce specific antibodies to E. chaffeensis that can be detected by an immunofluorescent antibody (IFA) test. Single IgG IFA titers of 1:64 or greater indicate exposure to E. chaffeensis. A four-fold rise in IgG titers between acute and convalescent samples and/or the presence of IgM antibody against E. chaffeensis suggest recent or current infection. This test was developed and its performance characteristics have been determined by [employer]. It has not been cleared or approved by the U.S. Food and Drug Administration. The FDA has determined that such clearance or approval is not necessary. Performance characteristics refer to the analytical performance of the test. Test Performed by: [facility] [employer], [employer] [address] [place] [address] 27 Because ethnic data is not always readily [...] 15-29 5 Kidney failure <15 (or dialysis) 28 Because ethnic data is not always readily [...] 15-29 5 Kidney failure <15 (or dialysis) 29 Because ethnic data is not always readily [...] 15-29 5 Kidney failure <15 (or dialysis) 30 Verbal to DESTINY/ED by [id number] at 2147 on 01/11/13. Results read back accurately. 31 Reference Range and Interpretation: TnI (ng/mL) Interpretation Less Than 0.06 ng/mL Not supportive of diagnosis of AK 0.06 - 0.50 ng/mL Indeterminate: suggest serial studies if clinically indicated. Greater than 0.5 ng/mL Consistent with diagnosis of AK 32 The detection limit for Ethanol is 10.0 mg/dl . Values less than 10.0 mg/dl cannot be accurately measured. 33 Because ethnic data is not always readily [...] 15-29 5 Kidney failure <15 (or dialysis) 34 IgG titers if 1:64 or greater indicate exposure or acute and convalescent samples showing a four-fold increase, and/or the presence of IgM indicate recent or current infection. . This test was developed and its performance characteristics determined by [employer]. It has not been cleared or approved by the U.S. Food and Drug Administration. . The FDA has determined that such clearance or approval is not necessary. This test is used for clinical purposes. It should not be regarded as investigational or for research. 35 HGE IgG levels are detectable 7 to 10 days post infection and persist approximately one year. . This test was developed and its performance characteristics determined by [facility]. It has not been cleared or approved by the U.S. Food and Drug Administration. . The FDA has determined that such clearance or approval is not necessary. This test is used for clinical purposes. It should not be regarded as investigational or for research. 36 IgM levels usually rise 3 to 5 days post infection and fall to normal levels in approximately 30 to 60 days. . This test was developed and its performance characteristics determined by [facility]. It has not been cleared or approved by the U.S. Food and Drug Administration. . The FDA has determined that such clearance or approval is not necessary. This test is used for clinical purposes. It should not be regarded as investigational or for research. 37 Negative <0.9 Equivocal 0.9 - 1.0 Positive >1.0 38 Negative <0.9 Equivocal 0.9 - 1.0 Positive >1.0 39 Negative <0.9 Equivocal 0.9 - 1.0 Positive >1.0 40 Negative <0.9 Equivocal 0.9 - 1.0 Positive >1.0 41 EBV Interpretation Chart . Interpretation VCA-IgM EA-IgG VCA-IgG NA-ABS . Susceptible - - - - Acute Infection + +or- +or- - Convalescent Phase +or- +or- + + Chronic or Reactivated - + + +or- Old Infection - - +or- + + Antibody Present - Antibody Absent 42 Positive: 5 of the following Borrelia-specific bands: 18,23,28,30,39,41,45,58, 66, and 93. Negative: No bands or banding patterns which do not meet positive criteria. 43 Note: An equivocal or positive EIA result followed by a negative Western Blot result is considered NEGATIVE. An equivocal or positive EIA result followed by a positive Western Blot is considered POSITIVE by the CDC. . Positive: 2 of the following bands: 23,39 or 41 Negative: No bands or banding patterns which do not meet positive criteria. Criteria for positivity are those recommended by CDC/ASTPHLD. p23=Osp C, f25=whaadoekp . Note: Sera from individuals with the following may cross react in the Lyme Western Blot assays: other spirochetal diseases (periodontal disease, leptospirosis, relapsing fever, yaws, and pinta); connective autoimmune (Rheumatoid Arthritis and Systemic Lupus Erythematosus and also individuals with Antinuclear Antibody); other infections ([place] Spotted Fever; Nuria-Greer Virus, and Cytomegalovirus). . . Procedures Date CPT Code Description Status 06/30/2011 04843 Vision Test- screening test of visual acuity, Completed quantitative, bila Encounters Type Date Location Provider CPT E/M Dx Office Visit 10/21/2017 2:45p [place] [address] M79.1 M79.2 Office Visit 06/30/2017 3:45p [facility] ANDREA Arcos 21597 R13.10 Z91.018 R07.89 Office Visit 02/03/2017 2:40p [facility] Luis Eduardo Broderick M.D. 63975 E78.2 Office Visit 01/18/2017 10:20a [facility] Luis Eduardo Broderick M.D. 32605 Z00.01 G40.209 Z11.59 Z12.5 Z13.220 Z72.89 Office Visit 12/14/2016 4:00p [facility] Office Mare Pete, TERRY 30093 Z12.11 A69.20 R42 R53.83 Office Visit 04/10/2015 8:40a [facility] Luis Eduardo Broderick M.D. 26543 N39.9 Office Visit 01/27/2015 11:10a [facility] Luis Eduardo Broderick M.D. 01737 R07.89 Office Visit 01/23/2014 2:20p [facility] Office Luis Eduardo Broderick M.D. 29085 307.49 Office Visit 08/22/2012 1:45p [facility] Office ANDREA Pelaez 35032 780.4 300.09 Office Visit 07/21/2011 4:30p [facility] Office Luis Eduardo Broderick M.D. 66503 314.01 709.2 Office Visit 07/12/2011 3:40p [facility] Office Luis Eduardo Broderick M.D. 93301 088.81 521.09 314.01 v76.51 V76.51 Office Visit 06/30/2011 2:30p [facility] Office Luis Eduardo Broderick M.D. 96243 V70.0 172.6 V76.44 V76.51 780.79 V17.3 599.72 V72.0 Plan of Care Future Appointment(s):11/02/2017 11:10 am - Luis Eduardo Broderick M.D. at [facility] Rhgdbn3210/24/2017 - Adolph Hwang M.D.M79.1 MyalgiaComments:Check for other tickborne zdzdbhvE72.89 Other chest painComments:doubt cardiac pain as he feels better with hgdwsvukW84.512 Pain in left shoulderComments:Await x-ray results, may need further xnbqzioR07.2 CervicalgiaComments:Rule out cervical radiculopathyAllNew Medication:Doxycycline Hyclate 100 mgBenadryl Allergy 25 mgDiphenhydramine HCL 25 mgComments:For the last month patient had been complaining of pain in the neck left shoulder and upper chest. Associated with malaise. He noted an area of presumed cellulitis in the left axilla. His Lyme disease test was negative. Is inflammatory studies were also negative. He has some symptoms are reproduced byflexion of the cervical spine and has tenderness over to palpation over the posterior left shoulder.I'm concerned he may have a tickborne illness and has started doxycycline. A normal CRP and sedimentation rate seem to rule out polymyalgia. He has not slept well for several days. He' ll try Benadryl for his chronic insomnia. EKG today was unremarkable and showed no conduction abnormalities. We will start doxycycline 100 mg twice a day for 2 weeks to cover tickborne illness. Check a protein electrophoresis. Referred to dermatology given his prior history of melanoma. Return return to the office in one week for followup
--- OUTSIDE RECORDS SUMMARY | 2017-11-22 22:55 | XMS REPORT ---
:1950 External Reference #:[id number] Author Organization Flavio Cardona M.D., [facility] Address [address] [place] [address] Phone [phone] Care Team Providers Name Role Phone Davie PORTILLO, Luis Eduardo Care Team Information Thread Drawer Unavailable Davie PORTILLO, Luis Eduardo Primary Care Physician Unavailable Payers Type Date Identification Numbers Payment Provider Subscriber Health Maintenance Policy Number: BC/BS [place] Ppo Pauline Portillo Organization (HMO) [id number] PayID: [id number] [address] [place] [address] Problems Date Description Provider Status Onset: 10/04/2016 Bilateral primary open angle glaucoma Flavio Cardona M.D. Active Onset: 06/25/2016 Presbyopia Flavio Cardona M.D. Active Onset: 06/25/2016 Open-angle glaucoma - borderline Flavio Cardona M.D. Active Family History Date Family Member(s) Problem(s) Comments Father Heart Failure Mother Alzheimer's Disease Mother Cerebrovascular Accident Mother High BP Mother Heart Disease Social History Type Date Description Comments ETOH Use Denies alcohol use Smoking Patient is a former smoker Allergies, Adverse Reactions, Alerts Date Description Reaction Status Severity Comments 06/25/2016 Clindamycin active 06/25/2016 Benzodiazepines active 06/25/2016 Penicillins active 06/25/2016 Valium active Medications Medication Date Status Form Strength Qnty SIG Indications Ordering Provider Latanoprost 10/05/19 Active Solution 0.005% 7.5units 1 drops H40.1131 Flavio Bojorquez both eyes Cardona, every M.DKatlyn night Lamictal Active Tablets 350mg Unknown 00 Vital Signs Date Vital Result Comment 11/14/2017 Intraocular Pressure Right Eye 27 mmHg Intraocular Pressure Left Eye 25 mmHg 10/04/2016 Intraocular Pressure Right Eye 27 mmHg Intraocular Pressure Left Eye 25 mmHg 06/25/2016 Intraocular Pressure Right Eye 23 mmHg Intraocular Pressure Left Eye 22 mmHg Cornea Thickness Left Eye 566 m Cornea Thickness Right Eye 560 m Pachymetry adjusted IOP Right Eye -1 Pachymetry adjusted IOP Left Eye -1 Results Description No Information Procedures Date CPT Code Description Status 11/14/2017 71970 Eye Exam Est Intermediate Completed 10/04/2016 37957 Oct, Optic Nerve Completed 10/04/2016 22961 Visual Field Exam Extended, Unilateral Or Bilateral Completed 10/04/2016 45847 Eye Exam Est Intermediate Completed 06/25/2016 79261 Fundus Photography W/Interpretation & Report Completed 06/25/2016 89797 Refraction Completed 06/25/2016 95980 Eye Exam New Comprehensive Completed 06/25/2016 54286 Corneal Pachymetry, Unilateral/Bilateral Completed Plan of Care 11/14/2017 - Flavio Cardona M.D.H40.1131 Primary open-angle glaucoma, bilateral , mild stageFollow up:few wks iop, VF
--- NOTE | 2017-11-23 03:41 | ED ---
Bite Injury/Animal - HPI Summary HPI Summary: Patient complains of possible exposure to rabies. Bat has been seen in the house for 3 of the past 4 nights. Bat has not been captured. Patient denies any knowledge of any wound. Patient denies any other symptoms or injury. Patient here of concern for possible rabies exposure. - History of Current Complaint Chief Complaint: EDAnimalBite Stated Complaint: EXPOSURE TO A BAT Time Seen by Provider: 11/22/17 22:47 Hx Obtained From: Patient Onset of Injury: Happened hours ago Severity Currently: None Pain Intensity: 0 Pain Scale Used: 0-10 Numeric - Allergies/Home Medications Allergies/Adverse Reactions: Allergies Allergy/AdvReac Type Severity Reaction Status Date / Time Benzodiazepines Allergy See Comment Verified 11/22/17 22:41 clindamycin Allergy Nausea And Verified 11/22/17 22:41 Vomiting Penicillins Allergy Rash Verified 11/22/17 22:41 OILS Allergy See Comment Uncoded 11/22/17 22:41 SUGAR Allergy See Comment Uncoded 11/22/17 22:41 PMH/Surg Hx/FS Hx/Imm Hx Endocrine/Hematology History: Denies: Hx Diabetes Cardiovascular History: Reports: Hx Syncope, Other Cardiovascular Problems/ Disorders - States cardiac symptoms were related to tooth infections Denies: Hx Congestive Heart Failure, Hx Hypertension, Hx Pacemaker/ICD Respiratory History: Denies: Hx Asthma GI History: Reports: Hx Gastroesophageal Reflux Disease, Other GI Disorders - constriction of voice History: Reports: Hx Benign Prostatic Hyperplasia Denies: Hx Dialysis, Hx Renal Disease Musculoskeletal History: Reports: Hx Back Problems - L5 fracture Sensory History: Reports: Hx Contacts or Glasses Denies: Hx Hearing Aid Opthamlomology History: Reports: Hx Contacts or Glasses Neurological History: Reports: Hx Seizures, Other Neuro Impairments/Disorders - Hx L5 fracture, seizure prior to admission, dizziness Denies: Hx Headaches Psychiatric History: Reports: Hx Anxiety, Hx Attention Deficit Hyperactivity Disorder - ADD, Hx Depression, Hx Post Traumatic Stress Disorder - per patient; undiagnosed., Hx Substance Abuse Denies: Hx Panic Disorder - BE CAREFUL OF BRIGHT LIGHT - PLEASE DIM THE LIGHTS, Hx Suicide Attempt - Cancer History Cancer Type, Location and Year: melanoma 4-5 years ago Hx Chemotherapy: No Hx Radiation Therapy: No Hx Palliative Cancer Treatment: No - Surgical History Surgery Procedure, Year, and Place: APPY (AUGUST 2016) SKIN CARCINOMA 2008. TONSILS CHILD Hx Anesthesia Reactions: No Infectious Disease History: No Infectious Disease History: Denies: Traveled Outside the [place] in Last 30 Days - Family History Known Family History: Positive: None, Cardiac Disease - Father: fatal [place]. Mother : [place], Hypertension - Mother Family History: Mother: CVA, alcohol abuse - Social History Alcohol Use: None Substance Use Type: Reports: None Smoking Status (MU): Never Smoked Tobacco Type: Cigarettes Have You Smoked in the Last Year: No Review of Systems Constitutional: Negative Eyes: Negative ENT: Negative Cardiovascular: Negative Respiratory: Negative Gastrointestinal: Negative Genitourinary: Negative Musculoskeletal: Negative Skin: Negative Neurological: Negative Psychological: Normal All Other Systems Reviewed And Are Negative: Yes Physical Exam Triage Information Reviewed: Yes Vital Signs On Initial Exam: Initial Vitals Temp Pulse Resp BP Pulse Ox 98.4 F 67 18 126/87 100 11/22/17 22:35 11/22/17 22:35 11/22/17 22:35 11/22/17 22:35 11/22/17 22:35 Vital Signs Reviewed: Yes Appearance: Positive: Well-Appearing Skin: Positive: Warm Head/Face: Positive: Normal Head/Face Inspection Eyes: Positive: Normal Neck: Positive: Supple Respiratory/Lung Sounds: Positive: Clear to Auscultation Cardiovascular: Positive: Normal Abdomen Description: Positive: Nontender Musculoskeletal: Positive: Normal Neurological: Positive: Normal Psychiatric: Positive: Normal AVPU Assessment: Alert - Andrew Coma Scale Best Eye Response: 4 - Spontaneous Best Motor Response: 6 - Obeys Commands Best Verbal Response: 5 - Oriented Coma Scale Total: 15 Diagnostics - Vital Signs Vital Signs Temp Pulse Resp BP Pulse Ox 11/22/17 23:13 98.4 F 67 18 126/87 100 11/22/17 22:35 98.4 F 67 18 126/87 100 - Laboratory Lab Statement: Any lab studies that have been ordered have been reviewed, and results considered in the medical decision making process. Bite Injury Course/Dx - Course Course Of Treatment: Patient complains of possible exposure to rabies. Bat has been seen in the house for 3 of the past 4 nights. Bat has not been captured. Patient denies any knowledge of any wound. Patient denies any other symptoms or injury. Patient here of concern for possible rabies exposure. Discussed patient with an [facility] department who recommended initiating rabies treatment. Patient refuses treatment, signed out AMA - Diagnoses Provider Diagnosis: Exposure to bat without known bite Discharge - Sign-Out/Discharge Documenting (check all that apply): Patient Departure - Discharge Plan Condition: Stable Disposition: AGAINST MEDICAL ADVICE Referrals: Luis Eduardo Broderick MD [Primary Care Provider] - Additional Instructions: Follow-up with [facility]. - Billing Disposition and Condition Condition: STABLE Disposition: Against Medical Advice
== END 2017-11-22 23:13 | disposition left against medical advice (07) ==
LOC: ED 22:32
DX: Z20.3 Contact with and (suspected) exposure to rabies (principal); Z88.1 Allergy status to other antibiotic agents; Z88.0 Allergy status to penicillin; Z88.8 Allergy status to other drugs, medicaments and biological substances; Z85.820 Personal history of malignant melanoma of skin; Z82.49 Family history of ischemic heart disease and other diseases of the circulatory system; Z82.3 Family history of stroke
CPT/HCPCS: 99282

== ENCOUNTER 2018-08-23 17:32 | Emergency (ER) | payer MEDICARE, BC ==
--- OUTSIDE RECORDS SUMMARY | 2018-08-23 18:00 | XMS REPORT | Continuity of Care Document ---
:1950 External Reference #:[id number] Author Name FREDI Buchanan Address [address] [facility] [place] [address] Care Team Providers Name Role Phone Luis Eduardo Broderick MD Care Team Information Tool Filer Unavailable Luis Eduardo Broderick MD Primary Care Physician Unavailable Payers Date Identification Numbers Payment Provider Subscriber Effective: 2017 Policy Number: [id number] [employer] [place] [employer] PayID: [id number] [address] [place] [address] Effective: 2017 Policy Number: [id number] [place] [employer] Expires: 2017 PayID: [id number] [address] [place] [address] Policy Number: [id number] Out Of Area [facility] Pauline Adair Group Number: [id number] [address] PayID: [id number] JOSE MANUEL Jacobo [id number] Advance Directives Description No Information Available Problems Active Problems Provider Date Malaise and fatigue Luis Eduardo Broderick M.D. Onset: 06/30/2011 Muscle pain Adolph Hwang M.D. Onset: 10/24/2017 Neck pain Adolph Hwang M.D. Onset: 10/24/2017 Shoulder joint pain Adolph Hwang M.D. Onset: 10/24/2017 Chest pain Luis Eduardo Broderick M.D. Onset: 01/27/2015 Family History Date Family Member(s) Observation Comments Father Alcoholism Father [place] Mother Bipolar Disorder Mother Alcoholism Mother [place] First Brother Alcoholism Social History Type Date Description Comments Sex Unknown Tobacco Use Start: Unknown End: Unknown Patient is a former smoker Smoking Status Reviewed: 06/07/18 Patient is a former smoker Allergies, Adverse Reactions, Alerts Active Allergies Reaction Severity Comments Date Penicillin rash 06/30/2011 Clindamycin heart racing, bloody stools 08/22/2012 Benzodiazepines memory loss 04/10/2015 Medications Active Medications SIG Qnty Indications Ordering Provider Date Lamictal 1-1/2 po qam, 2 60tabs Unknown 100mg Tablets po qpm Latanoprost-Timolol gtts both eye Unknown Maleate every day 0.005-0.5% Solution History Medications Pantoprazole Sodium 1 by mouth 30tabs K21.9 Mare Denise 04/07/2018 - 40mg every day Pete [employer] 08/23/2018 Tablets Doxycycline Hyclate 1 by mouth two 14caps J20.9 Luis Eduardo Broderick, 2017 - 100mg times a day M.DKatlyn 02/22/2018 Capsules Doxycycline Hyclate take one 14caps Luis Eduardo Broderick, 10/24/2017 - 100mg capsule by May 11/23/2017 Capsules mouth twice a day Benadryl Allergy Adolphhenrry Fernando 10/24/2017 - 25mg May Hwang 02/15/2018 Tablets Diphenhydramine HCL 1-2 by mouth at 30caps Adolph FKatlyn 10/24/2017 - 25mg bedtime as May Hwang 02/15/2018 Capsules needed Naproxen take one by 30tabs M79.1 Shanti Bello 10/21/2017 - 375mg Tablets mouth twice AlcidesTERRY 10/23/2017 daily as needed for pain Clindamycin HCL 1 po tid 21caps 521.09 Luis Eduardo Broderick, 07/12/2011 - 150mg May 07/19/2011 Capsules Doxycycline Hyclate 1 po bid 56tabs Mo Gamble 07/06/2011 - 100mg May Howard 07/06/[address] Vikas Tomclflavio use 1bid 56caps Mo Gamble 07/06/2011 - 100mg May Howard 08/22/2012 Capsules Citalopram Hydrobromide 1 po qd 90tabs Unknown - 01/27/2015 10mg Tablets Advil 1 by mouth Unknown - 200mg Tablets every 4 hours 02/15/2018 as needed Immunizations Description No Information Available Vital Signs Date Vital Result Comment 08/23/2018 4:17pm BP Systolic 118 mmHg BP Diastolic 74 mmHg Heart Rate 82 /min Body Temperature 98.2 F Respiratory Rate 16 /min Height 67 inches 5'7" Weight 169.00 lb BMI (Body Mass Index) 26.5 kg/m2 06/07/2018 4:30pm BP Systolic 104 mmHg BP Diastolic 66 mmHg Heart Rate 94 /min Body Temperature 97.9 F Respiratory Rate 16 /min Height 67 inches 5'7" Weight 171.00 lb BMI (Body Mass Index) 26.8 kg/m2 04/07/2018 3:59pm BP Systolic 122 mmHg BP Diastolic 66 mmHg Heart Rate 88 /min Body Temperature 97.9 F Respiratory Rate 17 /min O2 % BldC Oximetry 96 % Ra Height 67 inches 5'7" Weight 167.00 lb BMI (Body Mass Index) 26.2 kg/m2 02/15/2018 3:33pm BP Systolic 132 mmHg BP Diastolic 82 mmHg Heart Rate 88 /min Body Temperature 98.1 F Respiratory Rate 14 /min O2 % BldC Oximetry 96 % Height 67 inches 5'7" Weight 166.00 lb BMI (Body Mass Index) 26.0 kg/m2 11/02/2017 11:06am BP Systolic 100 mmHg BP Diastolic 60 mmHg Heart Rate 88 /min Body Temperature 98.3 F Respiratory Rate 16 /min Height 67 inches 5'7" Weight 158.00 lb BMI (Body Mass Index) 24.7 kg/m2 10/24/2017 11:49am BP Systolic 112 mmHg BP Diastolic 72 mmHg Heart Rate 94 /min Body Temperature 99.1 F Height 67 inches 5'7" 10/21/2017 2:49pm BP Systolic 122 mmHg BP Diastolic 82 mmHg Heart Rate 92 /min Body Temperature 98.2 F Height 67 inches 5'7" Weight 155.12 lb BMI (Body Mass Index) 24.3 kg/m2 06/30/2017 3:36pm BP Systolic 110 mmHg BP Diastolic 70 mmHg Heart Rate 84 /min Body Temperature 97.8 F Respiratory Rate 18 /min Height 67 inches 5'7" Weight 165.00 lb BMI (Body Mass Index) 25.8 kg/m2 02/03/2017 2:39pm BP Systolic 108 mmHg BP Diastolic 60 mmHg Heart Rate 80 /min Respiratory Rate 16 /min Height 67 inches 5'7" 01/18/2017 10:27am BP Systolic 120 mmHg BP Diastolic 90 mmHg Heart Rate 76 /min Body Temperature 98.0 F Respiratory Rate 18 /min Height 67 inches 5'7" Weight 155.00 lb BMI (Body Mass Index) 24.3 kg/m2 12/14/2016 4:03pm BP Systolic 100 mmHg BP Diastolic 64 mmHg Heart Rate 78 /min Body Temperature 98.3 F Respiratory Rate 16 /min Height 67 inches 5'7" Weight 156.50 lb BMI (Body Mass Index) 24.5 kg/m2 04/10/2015 8:31am BP Systolic 106 mmHg BP Diastolic 60 mmHg Heart Rate 76 /min Body Temperature 97.2 F Respiratory Rate 16 /min Height 67 inches 5'7" Weight 163.00 lb BMI (Body Mass Index) 25.5 kg/m2 01/27/2015 11:10am BP Systolic 116 mmHg BP Diastolic 60 mmHg Heart Rate 88 /min Body Temperature 98.2 F Respiratory Rate 16 /min Height 67 inches 5'7" Weight 160.00 lb BMI (Body Mass Index) 25.1 kg/m2 01/23/2014 1:47pm BP Systolic 114 mmHg BP Diastolic 64 mmHg Heart Rate 88 /min Body Temperature 96.6 F Respiratory Rate 16 /min Height 67 inches 5'7" Weight 154.00 lb BMI (Body Mass Index) 24.1 kg/m2 08/22/2012 1:50pm BP Systolic 122 mmHg BP Diastolic 70 mmHg Heart Rate 72 /min Body Temperature 98.4 F Respiratory Rate 16 /min Height 67 inches 5'7" Weight 160.00 lb BMI (Body Mass Index) 25.1 kg/m2 07/21/2011 4:35pm BP Systolic 120 mmHg BP Diastolic 70 mmHg Heart Rate 84 /min Body Temperature 97.9 F Respiratory Rate 16 /min Height 67 inches 5'7" Weight 172.00 lb BMI (Body Mass Index) 26.9 kg/m2 07/12/2011 3:35pm BP Systolic 114 mmHg BP Diastolic 70 mmHg Heart Rate 80 /min Body Temperature 97.6 F Respiratory Rate 16 /min Height 67 inches 5'7" Weight 171.00 lb BMI (Body Mass Index) 26.8 kg/m2 06/30/2011 2:18pm BP Systolic 102 mmHg BP Diastolic 68 mmHg Heart Rate 88 /min Body Temperature 98.1 F Respiratory Rate 16 /min Height 67 inches 5'7" Weight 164.00 lb BMI (Body Mass Index) 25.7 kg/m2 Right Visual Acuity Distance 20/20 corrected Left Visual Acuity Distance 20/20 corrected Results Test Date Facility Test Result H/L Range Note Laboratory test [facility] [place]ology SEE RESULT 1, 2 finding 018 BELOW Laboratory test Jay June(fma) CK 53 U/L 38-174 finding 018 Laboratory test [facility] PDF [id number] SEE IMAGE 3 finding 018 [address] [place] [address] [phone] - Anaplasma [facility] A. phagocytophilum Negative Negative 4 Phagocytophilum Dna [address] [place] [address] [place] [address] [phone] - Ehrlichiosis Panel [facility] E. chaffeensis Negative Neg:<1:[address] [place] [address] (HME) [place] [address] (395)- - Hge IgM Titer Negative Neg:<1:20 6 E. chaffeensis ([facility]) IgG Titer Negative Neg:<1:64 Hge IgG Titer Negative Neg:<1:64 7 Spep Serum Protein 10/24/2017 [facility] Protein, Total 6.9 g/dL 6.0-8.[address] [place] [phone])- - Albumin 4.0 g/dL 2.9-4.4 Nledz-0-Graqbmxg 0.3 g/dL 0.0-0.4 Wxgop-0-Oqdqcrsf 0.8 g/dL 0.4-1.0 Beta Globulin 0.8 g/dL 0.7-1.3 Gamma Globulin 1.0 g/dL 0.4-1.8 M-Te Not Observed g/dL Not Observed Globulin, Total 2.9 g/dL 2.2-3.9 A/G Ratio 1.4 0.7-1.7 Please note: See Comment: 8 PDF . Babesia Microti 10/24/2017 [facility] Babesia microti <1:10 Neg:<1:10 AB Panel [address] [place] [address] [place] [address] [phone])- - Babesia microti IgG <1:10 Neg:<1:10 9 Laboratory test 10/21/2017 [facility] Sedimentation Rate 12mm finding (607)- - CBC Electronic Fma 10/21/2017 Jay June([facility]) WBC 7.0 4.0-10. x10^3/UL 0 RBC 4.82 x10^6/UL 3.93-6.00 HGB 14.1 g/dL 12.0-17.0 HCT 41 % 35-50 MCV 84.2 fL 80.0-95.0 MCH 29.3 pg 25.6-32.2 MCHC 34.7 g/dL 32.2-36.0 RDW-CV 12.1 % 11.6-14.4 PLT 229 x10^3/UL 163-400 MPV 9.4 fL 9.4-12.4 Wes# 4.78 x10^3/UL 1.56-6.13 Lymph# 1.49 x10^3/UL 1.18-3.74 Mckenzie# 0.38 x10^3/UL 0.24-0.82 Eos # 0.3 x10^3/UL 0.0-0.5 Baso # 0.02 x10^3/UL 0.01-0.08 Wes% 68.5 % 34.0-70.0 Lymph % 21.3 % 20.0-52.0 Mckenzie% 5.4 % 5.0-12.0 Eos% 4.4 % 0.7-7.0 Baso% 0.3 % 0.1-1.2 Laboratory test 10/21/2017 Jay June([facility]) Vitamin B-12 763 pg/mL 230-1050 finding Comprehensive 10/21/2017 Jay June([facility]) Sodium 137 mEq/L 134-149 Metabolic Prof Potassium 4.2 mEq/L 3.6-5.5 Chloride 101 mEq/L [...] >=60 GFR >60 ml/min/1.73m^ >=60 Laboratory test 10/21/2017 [facility] C-Reactive 1.3 mg/L 0.0-4.9 [address] [place] [address] Protein, [place] [address] [phone])- - Laboratory test 10/21/2017 [facility] Lamotrigine 5.2 ug/mL 2.0-20.0 [address] [place] [address] (Lamictal), [place] [address] ([phone] - Lyme, Western 10/21/2017 [facility] IgG P93 Ab. Absent Blot, Serum [address] [place] [phone])- - IgG P66 Ab. Absent IgG P58 Ab. Present Abnormal IgG P45 Ab. Absent IgG P41 Ab. Present Abnormal IgG P39 Ab. Present Abnormal IgG P30 Ab. Absent IgG P28 Ab. Absent IgG P23 Ab. Present Abnormal IgG P18 Ab. Present Abnormal Lyme IgG WB Interp. Positive Abnormal 12 IgM P41 Ab. Present Abnormal IgM P39 Ab. Absent IgM P23 Ab. Absent Lyme IgM WB Interp. Negative 13 Jada Panel-LD 10/21/2017 [facility] Antinuclear Negative 14 ([facility]) [address] [place] [address] Antibodies, [place] [address] [phone])- - Anti-dsDNA Antibodies 1 IU/mL 0-9 15 Hla B 27 Disease Association Negative 16 Antiextractable 10/21/2017 [facility] [employer] Antibodies <0.2 AI 0.0-0.[address]igens [address] [place] [phone] (948)- - Yi Antibodies <0.2 AI 0.0-0.9 Sjogren's AB, 10/21/2017 [facility] Sjogren's <0.2 AI 0.0-0.9 Anti-SS-A/-SS-B [address] [facility] [place] [address] (607)- - Sjogren's Anti-SS-B 0.3 AI 0.0-0.9 Rheumatoid 10/21/2017 [facility] Ra Latex 14.8 IU/mL High 0.0-13.9 Arthritis Factor [facility]7 [facility] Turbid. ([facility]) [place] [address] (608)- - Laboratory test 07/19/2017 [facility] [place] Thyroxine 5.70 Low 6.09-12.23 finding g/mL TSH (Thyroid Stim Horm) 2.13 mcIU/mL N 0.34-5.60 B-Type Natriuretic Peptide BNP 15 pg/mL 17 CKMB 07/19/2017 [facility] [place] CKMB ng/mL 3.9 ng/mL N 0.6-6.3 Laboratory test finding 07/19/2017 [facility] [place] Magnesium 2.0 mg/dL N 1.9-2.7 Creatine Kinase(CK) 55 U/L N 10-223 Troponin I 0.00 ng/mL <0.04 Laboratory test finding 07/19/2017 [facility] [place] Troponin I 0.00 ng/mL <0.04 Urinalysis Profile 07/19/2017 [facility] [place] Urine Color Yellow Urine Appearance Clear Urine Specific [place] 1.010 N 1.010-1.030 Urine pH 6.0 N 5-9 Urine Urobilinogen Negative Negative Urine Ketones Trace Abnormal Negative Urine Protein Negative Negative Urine Leukocytes Negative Negative Urine Blood Negative Negative Urine Nitrite Negative Negative Urine Bilirubin Negative Negative Urine Glucose Negative Negative Comp Metabolic Panel 07/19/2017 [facility] [place] Sodium 138 mmol/L Low 139-145 Potassium 4.3 mmol/L N 3.5-5.0 Chloride 105 mmol/L N 101-111 Co2 Carbon Dioxide 28 mmol/L N 22-32 Anion Gap 5 mmol/L N 2-11 Glucose 95 mg/dL N 70-100 Blood Urea Nitrogen 18 mg/dL N 6-24 Creatinine 1.23 mg/dL High 0.67-1.17 BUN/Creatinine Ratio 14.6 N 8-20 Calcium 9.2 mg/dL N 8.6-10.3 Total Protein 6.5 g/dL N 6.4-8.9 Albumin 4.1 g/dL N 3.2-5.2 Globulin 2.4 g/dL N 2-4 Albumin/Globulin Ratio 1.7 N 1-3 Total Bilirubin 0.50 mg/dL N 0.2-1.0 Alkaline Phosphatase 64 U/L N 34-104 Alt 26 U/L N 7-52 Ast 27 U/L N 13-39 Egfr Non- 59.1 >60 Egfr 76.0 >60 18 CBC Auto Diff 07/19/2017 [facility] [place] White Blood Count 4.9 10^3/uL N 3.5-10.8 Red Blood Count 4.88 10^6/uL N 4.0-5.4 Hemoglobin 14.4 g/dL N 14.0-18.0 Hematocrit 42 % N 42-52 Mean Corpuscular Volume 85 fL N 80-94 Mean Corpuscular Hemoglobin 30 pg N 27-31 Mean Corpuscular HGB Conc 35 g/dL N 31-36 Red Cell Distribution Width 13 % N 10.5-15 Platelet Count 181 10^3/uL N 150-450 Mean Platelet Volume 7.8 um3 N 7.4-10.4 Abs Neutrophils 2.8 10^3/uL N 1.5-7.7 Abs Lymphocytes 1.5 10^3/uL N 1.0-4.8 Abs Monocytes 0.4 10^3/uL N 0-0.8 Abs Eosinophils 0.2 10^3/uL N 0-0.6 Abs Basophils 0 10^3/uL N 0-0.2 Abs Nucleated RBC 0 10^3/uL Granulocyte % 57.5 % N 38-83 Lymphocyte % 30.7 % N 25-47 Monocyte % 7.6 % High 0-7 Eosinophil % 3.8 % N 0-6 Basophil % 0.4 % N 0-2 Nucleated Red Blood Cells % 0.1 Laboratory test finding 07/19/2017 [facility] Partial Thrombo Time 29.2 seconds N 26.0-36.3 PTT Lactic Acid 0.7 mmol/L N 0.5-2.0 19 Complete Blood Count 01/18/2017 Jay June(fma) WBC 5.3 x10^3/UL 3.6 -9.6 RBC 5.08 x10^6/UL 3.90-5.70 HGB 14.2 g/dL 12.1-17.2 HCT 44 % 36-50 MCV 87.0 fL 82.2-97.4 MCH 28.0 pg 27.6-33.3 MCHC 33.1 g/dL 33.0-35.5 RDW 13.9 % High 11.6-13.7 PLT 214 x10^3/UL 150-400 MPV 6.7 fL Low 7.4-10.4 Gran # 3.4 x10^3/UL 1.5-7.2 Lymph# 1.7 x10^3/UL 0.7-4.9 Mckenzie# 0.2 x10^3/UL 0.1-0.9 Gran % 61.2 % 42.2-75.2 Lymph % 33.3 % 20.5-51.1 Mckenzie% 5.5 % 1.7-9.3 Laboratory test 01/18/2017 Jay June(fma) PSA 0.6 ng/mL 0.0-4.0 finding Lipid Profile 01/18/2017 Jay June(fma) Cholesterol 239 mg/dL High 120-200 Triglycerides 93 mg/dL 30-200 HDL Cholesterol 70 mg/dL 30-70 LDL (Calculated) 150 CALC High 0-129 VLDL Cholesterol 19 mg/dL 0-50 HDL Risk Factor 3.4 CALC 0.0-4.4 Laboratory test 01/18/2017 [facility] HCV AB non-reactive non- reactive finding (607)- - Laboratory test 12/16/2016 [facility] TSH 1.47 mcIU/mL N 0.34-5.60 finding (Thyroid Stim Horm) Free T4 (Free Thyroxine) 0.86 ng/dL N 0.61-1.12 Blood Culture SEE RESULT BELOW 20 Lyme Disease Serology Negative N Negative 21 Comp Metabolic Panel 12/16/2016 [facility] Sodium 137 mmol/L N 133-145 Potassium 4.0 mmol/L N 3.5-5.0 Chloride 102 mmol/L N 101-111 Co2 Carbon Dioxide 29 mmol/L N 22-32 Anion Gap 6 mmol/L N 2-11 Glucose 81 mg/dL N 70-100 Blood Urea Nitrogen 19 mg/dL N 6-24 Creatinine 1.13 mg/dL N 0.67-1.17 BUN/Creatinine Ratio 16.8 N 8-20 Calcium 9.3 mg/dL N 8.6-10.3 Total Protein 6.5 g/dL N 6.4-8.9 Albumin 4.3 g/dL N 3.2-5.2 Globulin 2.2 g/dL N 2-4 Albumin/Globulin Ratio 2.0 N 1-3 Total Bilirubin 0.60 mg/dL N 0.2-1.0 Alkaline Phosphatase 54 U/L N 34-104 Alt 21 U/L N 7-52 Ast 23 U/L N 13-39 Egfr Non- 65.3 N >60 Egfr 84.0 N >60 22 CBC Auto Diff 12/16/2016 [facility] [place] White Blood Count 6.7 10^3/uL N 3.5-10.8 Red Blood Count 4.79 10^6/uL N 4.0-5.4 Hemoglobin 13.7 g/dL Low 14.0-18.0 Hematocrit 41 % Low 42-52 Mean Corpuscular Volume 86 fL N 80-94 Mean Corpuscular Hemoglobin 29 pg N 27-31 Mean Corpuscular HGB Conc 33 g/dL N 31-36 Red Cell Distribution Width 13 % N 10.5-15 Platelet Count 209 10^3/uL N 150-450 Mean Platelet Volume 8 um3 N 7.4-10.4 Abs Neutrophils 3.7 10^3/uL N 1.5-7.7 Abs Lymphocytes 2.3 10^3/uL N 1.0-4.8 Abs Monocytes 0.3 10^3/uL N 0-0.8 Abs Eosinophils 0.3 10^3/uL N 0-0.6 Abs Basophils 0.1 10^3/uL N 0-0.2 Abs Nucleated RBC 0 10^3/uL N Granulocyte % 54.9 % N 38-83 Lymphocyte % 34.2 % N 25-47 Monocyte % 5.0 % N 1-9 Eosinophil % 5.1 % N 0-6 Basophil % 0.8 % N 0-2 Nucleated Red Blood Cells % 0 N Urinalysis Profile 12/16/2016 [facility] [place] Urine Color Colorless N Urine Appearance Clear N Urine Specific [place] 1.004 Low 1.010-1.030 Urine pH 5.0 N 5-9 Urine Urobilinogen Negative N Negative Urine Ketones Negative N Negative Urine Protein Negative N Negative Urine Leukocytes Negative N Negative Urine Blood Negative N Negative Urine Nitrite Negative N Negative Urine Bilirubin Negative N Negative Urine Glucose Negative N Negative Urinalysis Profile 08/16/2016 [facility] [place] Urine Color Yellow N Urine Appearance Clear N Urine Specific [place] 1.008 Low 1.010-1.030 Urine pH 5.0 N 5-9 Urine Urobilinogen Negative N Negative Urine Ketones 2+ Abnormal Negative Urine Protein Negative N Negative Urine Leukocytes Negative N Negative Urine Blood Negative N Negative Urine Nitrite Negative N Negative Urine Bilirubin Negative N Negative Urine Glucose Negative N Negative Comp Metabolic Panel 08/16/2016 [facility] [place] Sodium 135 mmol/L N 133-145 Chloride 101 mmol/L N 101-111 Co2 Carbon Dioxide 25 mmol/L N 22-32 Glucose 95 mg/dL N 70-100 Blood Urea Nitrogen 16 mg/dL N 6-24 Creatinine 1.10 mg/dL N 0.67-1.17 BUN/Creatinine Ratio 14.5 N 8-20 Calcium 9.5 mg/dL N 8.6-10.3 Total Protein 7.0 g/dL N 6.4-8.9 Albumin 4.4 g/dL N 3.2-5.2 Globulin 2.6 g/dL N 2-4 Albumin/Globulin Ratio 1.7 N 1-3 Total Bilirubin 0.90 mg/dL N 0.2-1.0 Alkaline Phosphatase 53 U/L N 34-104 Alt 41 U/L N 7-52 Egfr Non- 67.4 N >60 Egfr 86.7 N >60 23 Potassium 4.1 mmol/L N 3.5-5.0 Anion Gap 9 mmol/L N 2-11 Ast 43 U/L High 13-39 Laboratory test finding 08/16/2016 [facility] [place] Amylase 87 U/L N 29-103 Lipase 20 U/L N 11.0-82.0 C Reactive Protein 2.74 mg/L N < 5.00 24 Lyme Disease Serology Negative N Negative 25 CBC Auto Diff 08/16/2016 [facility] [place] White Blood Count 16.9 10^3/uL High 3.5- 10.8 Red Blood Count 5.05 10^6/uL N 4.0-5.4 Hemoglobin 14.3 g/dL N 14.0-18.0 Hematocrit 44 % N 42-52 Mean Corpuscular Volume 87 fL N 80-94 Mean Corpuscular Hemoglobin 28 pg N 27-31 Mean Corpuscular HGB Conc 33 g/dL N 31-36 Red Cell Distribution Width 13 % N 10.5-15 Platelet Count 193 10^3/uL N 150-450 Mean Platelet Volume 8 um3 N 7.4-10.4 Abs Neutrophils 14.6 10^3/uL High 1.5-7.7 Abs Lymphocytes 1.5 10^3/uL N 1.0-4.8 Abs Monocytes 0.7 10^3/uL N 0-0.8 Abs Eosinophils 0.1 10^3/uL N 0-0.6 Abs Basophils 0 10^3/uL N 0-0.2 Abs Nucleated RBC 0 10^3/uL N Granulocyte % 86.5 % High 38-83 Lymphocyte % 8.6 % Low 25-47 Monocyte % 3.9 % N 1-9 Eosinophil % 0.8 % N 0-6 Basophil % 0.2 % N 0-2 Nucleated Red Blood Cells % 0 N Laboratory test 04/10/2015 Jay June(a) PSA 0.5 ng/mL 0.0-4.0 finding Ua - Non Micro (a) 04/10/2015 [facility] Appearance CLEAR (607)- - Color YELLOW Glucose, Urine ([facility]/CTX) NEG Bilirubin NEG Ketones NEG SP Grav 1.015 Blood NEG PH 8.0 Protein NEG Urobil 0.2 Nitrite NEG Leukocytes ([facility]rex) NEG Comp Metabolic Panel 01/24/2015 [facility] Sodium 134 mmol/L N 133-145 Chloride 100 mmol/L Low 101-111 Co2 Carbon Dioxide 28 mmol/L N 22-32 Glucose 86 mg/dL N 70-100 Blood Urea Nitrogen 22 mg/dL N 6-24 Creatinine 1.33 mg/dL High 0.67-1.17 BUN/Creatinine Ratio 16.5 N 8-20 Calcium 9.1 mg/dL N 8.6-10.3 Total Protein 6.7 g/dL N 6.4-8.9 Albumin 4.2 g/dL N 3.2-5.2 Globulin 2.5 g/dL N 2-4 Albumin/Globulin Ratio 1.7 N 1-3 Total Bilirubin 0.50 mg/dL N 0.2-1.0 Alkaline Phosphatase 75 U/L N 34-104 Alt 28 U/L N 7-52 Egfr Non- 54.5 N >60 Egfr 70.1 N >60 26 Potassium TNP mmol/L N 3.5-5.0 27 Anion Gap TNP mmol/L N 2-11 Ast TNP U/L N 13-39 28 Laboratory test finding 01/24/2015 [facility] [place] Magnesium TNP mg/dL N 1.9-2.7 29 TSH (Thyroid Stim Horm) 1.81 ?IU/mL N 0.34-5.60 Inr/Protime 01/24/2015 [facility] [place] Inr 0.89 N 0.78-1.07 Laboratory test 01/24/2015 [facility] [place] D Dimer Quantitative < 200 ng/mL N Less Than 230 30 finding Lamotrigine (Lamictal) 6.0 g/mL N 2.5 - 15.0 31 Laboratory test finding 01/24/2015 [facility] [place] Ast Redraw 37 U/L N 13-39 C Reactive Protein 3.37 mg/L N < 5.00 32 Potassium Redraw 4.4 mmol/L N 3.5-5.0 Magnesium 1.8 mg/dL Low 1.9-2.7 CBC Auto Diff 01/24/2015 [facility] [place] White Blood Count 5.2 10^3/uL N 4.8-10.8 Red Blood Count 4.88 10^6/uL N 4.0-5.4 Hemoglobin 14.2 g/dL N 14.0-18.0 Hematocrit 43 % N 42-52 Mean Corpuscular Volume 88 fL N 80-94 Mean Corpuscular Hemoglobin 29 pg N 27-31 Mean Corpuscular HGB Conc 33 g/dL N 31-36 Red Cell Distribution Width 14 % N 10.5-15 Platelet Count 190 10^3/uL N 150-450 Mean Platelet Volume 8 um3 N 7.4-10.4 Abs Neutrophils 3.1 10^3/uL N 1.5-7.7 Abs Lymphocytes 1.6 10^3/uL N 1.0-4.8 Abs Monocytes 0.3 10^3/uL N 0-0.8 Abs Eosinophils 0.2 10^3/uL N 0-0.6 Abs Basophils 0 10^3/uL N 0-0.2 Abs Nucleated RBC 0.01 10^3/uL N Granulocyte % 59.2 % N 38-83 Lymphocyte % 29.9 % N 25-47 Monocyte % 6.4 % N 1-9 Eosinophil % 3.8 % N 0-6 Basophil % 0.7 % N 0-2 Nucleated Red Blood Cells % 0.1 N Laboratory test 01/24/2015 [facility] [place] Troponin I 0.00 ng/mL N <0.03 33 finding Laboratory test 10/23/2014 [facility] [place] Lamotrigine 6.1 g/mL N 2.5 - 15.0 34 finding (Lamictal) Laboratory test 10/16/2014 [facility] [place] Lyme Disease Serology Negative N Negative 35 finding Erlichia Chaffeensis 10/16/2014 [facility] [place] [place] Ehrlichia chaffeensis <1:64 N Abs Igg,Igm Ab IgG Ehrlichia chaffeensis Ab IgM <1:20 N Ehrlichia chaffeensis Interp See Comment N 36 Creatinine 08/20/2013 [facility] [place] [place] Creatinine 0.98 mg/dL 0.67-1.17 Egfr Non- 77.8 >60 Egfr 100.0 >60 37 Laboratory test finding 08/20/2013 [facility] [place] [place] Phenytoin 11.8 g/mL 10.0-20.0 Basic Metabolic Panel 06/08/2013 [facility] [place] Sodium 135 mmol/L 133-145 Potassium 4.2 mmol/L 3.7-5.6 Chloride 100 mmol/L Low 101-111 Co2 Carbon Dioxide 31 mmol/L 22-32 Anion Gap 4 mmol/L 2-11 Glucose 163 mg/dL High 70-100 Blood Urea Nitrogen 18 mg/dL 6-24 Creatinine 1.05 mg/dL 0.67-1.17 BUN/Creatinine Ratio 17.1 8-20 Calcium 8.5 mg/dL Low 8.6-10.3 Egfr Non- 72.0 >60 Egfr 92.7 >60 38 Laboratory test finding 06/08/2013 [facility] [place] Phenytoin 6.8 g/mL Low 10.0-20.0 Creatinine 02/27/2013 [facility] [place] Creatinine 1.00 mg/dL 0.50-1.40 Egfr Non- 76.2 >60 Egfr 98.0 >60 39 Laboratory test finding 01/11/2013 [facility] [place] Magnesium 2.2 mg/dL 1.7-2.6 Lactic Acid 2.8 mmol/L High 0.5-1.6 40 Creatine Kinase 61 U/L 0-200 Troponin I 0.01 ng/mL 0-0.06 41 Alcohol < 10 mg/dL Less Than 10 42 TSH (Thyroid Stimulating Horm) 1.41 miu/mL 0.34-5.60 CBC Auto Diff 01/11/2013 [facility] [place] White Blood Count 10.0 10^3/uL 4.8-10.8 Red [...] Red Blood Cells % 0.1 Inr/Protime 01/11/2013 [facility] [place] Inr 0.92 0.87-0.97 Laboratory test 01/11/2013 [facility] [place] Activated Partial 24.9 seconds 22.18- 37.18 finding Thrombo Time Comp Metabolic Panel 01/11/2013 [facility] [place] Sodium 137 mmol/L 133-145 Potassium 3.6 mmol/L [...] Egfr Non- 41.3 >60 Egfr 53.1 >60 43 Ict Hemoccult (a) 07/12/2011 [facility] Ict Hemoccult (1) 07/04/11 neg (607)- - Ict Hemoccult-(2) 07/07/11 neg Ict-Hemoccult (3) 07/09/11 neg Laboratory test 06/30/2011 [facility] Sed Rate 8mm finding (607)- - ([facility]) CBC Electronic 06/30/2011 [facility] WBC 8.3 3.6-9.6 ([facility]) (607)- - RBC 5.00 3.90-5.70 Hemoglobin ([facility]) 14.5 g/dL 12.1 - 17.2 Hematocrit ([facility]) 43.4 % 36.1 - 50.3 Platelets 274 10^3/ul 150-400 Lymph% 23.8 20.5-51.1 Mixed% 7.1 Neutrophils % 69.1 Mean Corpuscular Vol 87 82.2-97.4 Mean Corpuscular Hemoglobin 29.0 27.6-33.3 Mean Corpuscular Hemo Concen 33.4 32.0-36.0 RDW 11.9 11.6-13.7 Mean Platelet Volume 7.0 6.5-11.0 Ua - Micro (a) 06/30/2011 [facility] Appearance CLEAR (607)- - Color YELLOW Glucose NEG Bilirubin NEG Ketones NEG SP Grav 1.025 Blood TRACE-INTACT # PH 6.0 Protein NEG Urobil 0.2 Nitrite NEG Leukocytes (Fma/CMC/[facility]) NEG Hyaline - /Lpf Granular - /Lpf WBC ([facility]) - RBC 0-1 # Mucus SM AMT /Lpf # Epith - /Lpf Bacteria - /Hpf Amorphous - /Lpf Crystals, Fluid (Fma/CMC/CTX) - Z#Comments - Ehrlichia AB 06/30/2011 [facility] E. chaffeensis Negative Neg:<1:64 Panel (CTX) 28 [facility] (E) [place] [address] [phone] E. chaffeensis ([facility]ME) IgM Titer Negative Neg:<1:20 44 Hge IgG Titer Negative Neg:<1:64 45 Hge IgM Titer Negative Neg:<1:20 46 Ebv Acute 06/30/2011 [facility] Ebv Ab Vca, <0.2 AI 0.0-0.8 47 Infection Abs 28 [facility] [place] [address] [phone] Ebv Early Antigen Ab, IgG 6.3 AI High 0.0-0.8 48 Ebv Ab Vca, IgG >8.0 AI High 0.0-0.8 49 Ebv Nuclear Antigen Ab, IgG >8.0 AI High 0.0-0.8 50 Interpretation: SEE NOTE 51 Lyme Western Blot Ser 06/30/2011 [facility] IgG P93 Ab. Absent 28 [place] [address] [phone] IgG P66 Ab. Absent IgG P58 Ab. Absent IgG P45 Ab. Absent IgG P41 Ab. Present Abnormal IgG P39 Ab. Absent IgG P30 Ab. Absent IgG P28 Ab. Absent IgG P23 Ab. Absent IgG P18 Ab. Absent Lyme IgG WB Interp. Negative 52 IgM P41 Ab. Absent IgM P39 Ab. Present Abnormal IgM P23 Ab. Present Abnormal Lyme IgM WB Interp. Positive Abnormal 53 Laboratory test finding 06/30/2011 Pierre Watkins([facility]) TSH 2.64 mIU/L 0.50-6.00 PSA 0.90 ng/mL 0.00-4.00 Comprehensive Metabolic 06/30/2011 Pierre Watkins([facility]) Albumin 4.4 g/dL 3.8-5.5 Prof Alk. Phos. 72 U/L 22-95 Alt (SGPT) [...] Ratio 18.2 Calc 8.0-36.0 Lipid Profile 06/30/2011 Jay June([facility]) Cholesterol 215 mg/dL High 120-200 HDL 45 mg/dL 30-70 Triglycerides 191 mg/dL 30-200 HDL Risk Factor 4.8 CALC High 0.0-4.0 LDL (Calculated) 131 CALC High 0-129 VLDL (Calculated) 38 mg/dL 0-50 1 1572-A:Morphology: pearly telangiectatic papule;DDX: Basal Cell Carcinoma;Location: right inguina 2 SEE RESULT BELOW Name: PAULINE ADAIR : [address]: Elise Parish MD Acct: [id number] Unit: [id number] AGE: 67 Location: [facility] Re12/16/17 SEX: M Status: REG REF SPEC: [id number] MACKENZIE: 12/16/17-[address]: Elise Parish MD REQ: [id number] RECD: 12/16/17-206 STATUS: ROSIE GAMEZ DR: Fan Broderick MD _ ORDERED: LEVEL 4 COMMENTS: [id number] FINAL DIAGNOSIS Skin, right inguinal crease, biopsy: -- Benign lichenoid keratosis. PRE-OPERATIVE DIAGNOSIS Pearly telangiectatic papule, basal cell carcinoma GROSS DESCRIPTION The specimen is received in formalin labeled, Right Inguinal Crease, and consists of a 0.7 x 0.5 cm rooney-jaimes ovoid hairbearing skin shave which is inked, trisected and submitted entirely in one cassette. Signed by and Reported on: Luisa Gracia MD 12/20/17 1039 END OF REPORT DEPARTMENT OF PATHOLOGY, [address] [place] [address] Jorje Menchaca M.D. Director [facility] # [id number] 3 1 SST refrigerated 4 No Anaplasma phagocytophilum DNA detected. A. phagocytophilum has been characterized as the causative agent of Human Granulocytic Ehrlichiosis (HGE). This test was developed and its performance characteristics determined by [facility]. It has not been cleared or approved by the Food and Drug Administration. 5 IgG titers if 1:64 or greater indicate exposure or acute and convalescent samples showing a four-fold increase, and/or the presence of IgM indicate recent or current infection. 6 Due to a reagent backorder, this test was performed using a different assay. The reference interval for this alternate assay is: Negative <1:64 Positive 1:64 or greater IgM levels usually rise 3 to 5 days post infection and fall to normal levels in approximately 30 to 60 days. 7 HGE IgG levels are detectable 7 to 10 days post infection and persist approximately one year. 8 Protein electrophoresis scan will follow via computer, mail, or human development professor delivery. 9 This test was developed and its performance characteristics determined by [facility]. It has not been cleared or approved by the U.S. Food and Drug Administration. The FDA has determined that such clearance or approval is not necessary. This test is used for clinical purposes. It should not be regarded as investigational or research. 10 3 sst 11 Detection Limit=1.0 12 Positive: 5 of the following Borrelia-specific bands: 18,23,28,30,39,41,45,58, 66, and 93. Negative: No bands or banding patterns which do not meet positive criteria. 13 Note: An equivocal or positive EIA result [...] are those recommended by CDC/ASTPHLD. p23=Osp C, h76=qcuvfpimw Note: Sera from individuals with the following may cross react in the Lyme Western Blot assays: other spirochetal diseases (periodontal disease, leptospirosis, relapsing fever, yaws, and pinta); connective autoimmune (Rheumatoid Arthritis and Systemic Lupus Erythematosus and also individuals with Antinuclear Antibody); other infections (Mescalero Spotted Fever; Nuria-Greer Virus, and Cytomegalovirus). 14 Negative <1:80 Borderline 1:80 Positive >1:80 15 Negative <5 Equivocal 5 - 9 Positive >9 16 HLA-B*27 Negative B27 allele interpretation for all loci based on IMGT/HLA database version 3.27 This test was developed and its performance characteristics determined by [facility]. It has not been cleared or approved by the Food and Drug Administration. [facility] CLIA ID Number [id number] This test was performed using PCR (Polymerase Chain Reaction)/SSOP (Sequence Specific Oligonucleotide Probes) technique. SBT (Sequence Based Typing) and/or SSP (Sequence Specific Primers) may be used as supplemental methods when necessary. Please contact [facility] Customer Service at if you have any questions. Director of [facility] Dr Pedro Pablo Avila, PhD 17 >100 to <200 pg/mL: likely compensated congestive heart failure (CHF) 200 to 400 pg/mL: likely moderate CHF >400 pg/mL: likely moderate to severe CHF 18 Because ethnic data is not always readily [...] 15-29 5 Kidney failure <15 (or dialysis) 19 [facility] Severe Sepsis and Septic Shock Management Bundle Measure requires all lactic acids initially measuring >2.0 mmol/L be repeated. 20 SEE RESULT BELOW Name: PAULINE ADAIR : [address]: Mare Pete NP Acct: [id number] Unit: [id number] AGE: 66 Location: [facility] Re12/16/16 SEX: M Status: REG REF SPEC: [id number] MACKENZIE: 12/16/[address]: Mare Pete NP REQ: [id number] RECD: 12/16/16 STATUS: COMP _ SOURCE: BLOOD,[facility]: ORDERED: Blood Cult Procedure Result Reported Site Aerobic Culture Bottle Final 12/21/161847 ML No Growth Day 5 Anaerobic Culture Bottle Final 12/21/161847 ML No Growth Day 5 * ML - MAIN LAB ([facility]) . END OF REPORT * ML=Testing performed at Main Lab DEPARTMENT OF PATHOLOGY, [address] [place] [address] Jorje Menchaca M.D. Director [facility] # [id number] 21 Serologic response to B. burgdorferi infection is not detected, but cannot rule out early infection during which low or undetectable antibody levels to B. burgdorferi may be present. If clinically indicated, a new serum specimen should be submitted in 7-14 days. Test Performed by: [address] [address] 22 Because ethnic data is not always readily [...] 15-29 5 Kidney failure <15 (or dialysis) 23 Because ethnic data is not always readily [...] 15-29 5 Kidney failure <15 (or dialysis) 24 Acute inflammation: >10.00 25 Serologic response to B. burgdorferi infection is not detected, but cannot rule out early infection during which low or undetectable antibody levels to B. burgdorferi may be present. If clinically indicated, a new serum specimen should be submitted in 7-14 days. Test Performed by: [facility] [address] [address] 26 Because ethnic data is not always readily [...] 15-29 5 Kidney failure <15 (or dialysis) 27 Unable to report test result due to hemolysis. 28 Unable to report test result due to hemolysis. 29 Unable to report test result due to hemolysis. 30 Please note: The following may produce a false positive D Dimer test: - Rheumatoid factor greater than 60 IU/ml - Plasma hemoglobin greater than 0.05 gm/dl - Bilirubin greater than 50 mg/dl - Lipids greater than 1000 mg/dl - FDP greater than 20 ug/ml 31 Test Performed by: [place] [address] [employer] Supervisor: Juan Feliciano II, M.D., Ph.D. 32 Acute inflammation: >10.00 33 Reference Range and Interpretation: TnI (ng/mL) Interpretation Less Than 0.03 ng/mL Not supportive of diagnosis of [place] 0.03 - 0.50 ng/mL Indeterminate: suggest serial studies if clinically indicated. Greater than 0.5 ng/mL Consistent with diagnosis of [place] 34 Test Performed by: [place] [address] [employer] Supervisor: Juan Feliciano II, M.D., Ph.D. 35 Serologic response to B. burgdorferi infection is not detected, but cannot rule out early infection during which low or undetectable antibody levels to B. burgdorferi may be present. If clinically indicated, a new serum specimen should be submitted in 7-14 days. Test Performed by: [facility] [place] [address] [employer] Supervisor: Juan Feliciano II, M.D., Ph.D. 36 ANTIBODY NOT DETECTED REFERENCE RANGE: IgG <1:64 [...] its performance characteristics have been determined by [facility]. It has not been cleared or approved by the U.S. Food and Drug Administration. The FDA has determined that such clearance or approval is not necessary. Performance characteristics refer to the analytical performance of the test. Test Performed by: [facility], [facility]. [address] [place] [address] 37 Because ethnic data is not always readily [...] 15-29 5 Kidney failure <15 (or dialysis) 38 Because ethnic data is not always readily [...] 15-29 5 Kidney failure <15 (or dialysis) 39 Because ethnic data is not always readily [...] 15-29 5 Kidney failure <15 (or dialysis) 40 Verbal to DESTINY/ED by [id number] at 2147 on 01/11/13. Results read back accurately. 41 Reference Range and Interpretation: TnI (ng/mL) Interpretation Less Than 0.06 ng/mL Not supportive of diagnosis of [place] 0.06 - 0.50 ng/mL Indeterminate: suggest serial studies if clinically indicated. Greater than 0.5 ng/mL Consistent with diagnosis of [place] 42 The detection limit for Ethanol is 10.0 mg/dl . Values less than 10.0 mg/dl cannot be accurately measured. 43 Because ethnic data is not always readily [...] 15-29 5 Kidney failure <15 (or dialysis) 44 IgG titers if 1:64 or greater indicate exposure or acute and convalescent samples showing a four-fold increase, and/or the presence of IgM indicate recent or current infection. . This test was developed and its performance characteristics determined by [facility]. It has not been cleared or approved by the U.S. Food and Drug Administration. . The FDA has determined that such clearance or approval is not necessary. This test is used for clinical purposes. It should not be regarded as investigational or for research. 45 HGE IgG levels are detectable 7 to 10 days post infection and persist approximately one year. . This test was developed and its performance characteristics determined by [facility]. It has not been cleared or approved by the U.S. Food and Drug Administration. . The FDA has determined that such clearance or approval is not necessary. This test is used for clinical purposes. It should not be regarded as investigational or for research. 46 IgM levels usually rise 3 to 5 days post infection and fall to normal levels in approximately 30 to 60 days. . This test was developed and its performance characteristics determined by [facility]. It has not been cleared or approved by the U.S. Food and Drug Administration. . The FDA has determined that such clearance or approval is not necessary. This test is used for clinical purposes. It should not be regarded as investigational or for research. 47 Negative <0.9 Equivocal 0.9 - 1.0 Positive >1.0 48 Negative <0.9 Equivocal 0.9 - 1.0 Positive >1.0 49 Negative <0.9 Equivocal 0.9 - 1.0 Positive >1.0 50 Negative <0.9 Equivocal 0.9 - 1.0 Positive >1.0 51 EBV Interpretation Chart . Interpretation VCA-IgM EA-IgG VCA-IgG NA-ABS . Susceptible - - - - Acute Infection + +or- +or- - Convalescent Phase +or- +or- + + Chronic or Reactivated - + + +or- Old Infection - - +or- + + Antibody Present - Antibody Absent 52 Positive: 5 of the following Borrelia-specific bands: 18,23,28,30,39,41,45,58, 66, and 93. Negative: No bands or banding patterns which do not meet positive criteria. 53 Note: An equivocal or positive EIA result [...] are those recommended by CDC/ASTPHLD. p23=Osp C, r85=fbntevojn . Note: Sera from individuals with the following may cross react in the Lyme Western Blot assays: other spirochetal diseases (periodontal disease, leptospirosis, relapsing fever, yaws, and pinta); connective autoimmune (Rheumatoid Arthritis and Systemic Lupus Erythematosus and also individuals with Antinuclear Antibody); other infections (Mescalero Spotted Fever; Nuria-Greer Virus, and Cytomegalovirus). . . Procedures Date Code Description Status 02/15/2018 82406 Pulse Oximetry Completed 10/24/2017 71755 Electrocardiogram Complete Completed 06/30/2011 09736 Vision Test- screening test of visual acuity, Completed quantitative, bila Encounters Type Date Location Provider Dx Diagnosis Office Visit 06/07/2018 [facility] Mare Walker K21.9 Gastro- esophageal 4:30p TERRY Pete reflux disease without esophagitis Office Visit 04/07/2018 Main Office Cristina Hastings K21.9 Gastro-esophageal 3:45p [employer] reflux disease without esophagitis Office Visit 02/15/2018 [facility] Office Luis Eduardo Brodercik, J20.9 Acute bronchitis, 3:30p M.D. unspecified Office Visit 11/02/2017 [facility] Office Luis Eduardo Broderick, A69.20 Lyme disease, 11:10a M.D. unspecified Office Visit 10/24/2017 [facility] Office Adolph Fernando M79.1 Myalgia 11:20a May Hwang R07.89 Other chest pain M25.512 Pain in left shoulder M54.2 Cervicalgia Office Visit 10/21/2017 2:45p [facility] Shanti Mcgrath NP M79.1 Myalgia M79.2 Neuralgia and neuritis, unspecified Office Visit 06/30/2017 3:45p [facility] Cristina Smithrer, R13.10 Dysphagia, [employer] unspecified Z91.018 Allergy to other foods R07.89 Other chest pain Office Visit 02/03/2017 2:40p Main Office Luis Eduardo Gamble E78.2 Mixed hyperlipidemia May Broderick Office Visit 01/18/2017 10:20a [facility] Luis Eduardo Gamble Z00.01 Encounter for Office May Broderick general adult medical exam w abnormal findings G40.209 Local-rel symptc epi w cmplx prt seiz,not ntrct,w/o stat epi Z11.59 Encounter for screening for other viral diseases Z12.5 Encounter for screening for malignant neoplasm of prostate Z13.220 Encounter for screening for lipoid disorders Z72.89 Other problems related to lifestyle Office Visit 12/14/2016 4:00p Main Office Mare Walker Z12.11 Encounter for TERRY Pete screening for malignant neoplasm of colon A69.20 Lyme disease, unspecified R42 Dizziness and giddiness R53.83 Other fatigue Office Visit 04/10/2015 8:40a Main Office Luis Eduardo Gamble N39.9 Disorder of May Broderick urinary system, unspecified Office Visit 01/27/2015 11:10a [facility] Luis Eduardo Gamble R07.89 Other chest pain May Broderick Office Visit 01/23/2014 2:20p [facility] Luis Eduardo Gamble 307.49 Sleep Disorder May Broderick Other Office Visit 08/22/2012 1:45p [facility] Luisa 780.4 Dizziness & Ritesh, [employer] Giddiness 300.09 Anxiety States Other Office Visit 07/21/2011 4:30p [facility] Luis Eduardo Gamble 314.01 Attention Deficit May Broderick Disorder W/ Hyperactivity 709.2 Scar Conditions & Fibrosis Of Skin Office Visit 07/12/2011 3:40p [facility] Luis Eduardo Broderick 088.81 Lyme Lashonda Olvera 521.09 Other Dental Caries 314.01 Attention Deficit Disorder W/ Hyperactivity v76.51 Screening For Malignant Neoplasms Colon V76.51 Screening For Malignant Neoplasms Colon Office Visit 06/30/2011 2:30p [facility] Luis Eduardo Gamble V70.0 Examination Darlow, M.D. General Medical Routine AT [facility] 172.6 Malignant Melanoma Upper Limb Incl Shoulder V76.44 Screening For Malig Jimy Prostate V76.51 Screening For Malignant Neoplasms Colon 780.79 Malaise And Fatigue Other V17.3 History Family Ischemic Heart Disease 599.72 Microscopic Hematuria V72.0 Examination Eyes & Vision Plan of Treatment 08/23/2018 - Prabha Zheng Stewartkatarina, PAR42 Dizziness and giddinessComments:Send to ER for IV fluids, medical management, and further testing. Patient was offered ambulance ride, denied. will drive [place] [facility] [place]Report given to PATRICK Berman [place] [facility] [place].F55.8 Abuse of other non-psychoactive substancesComments:Food addiction currently. History of alcohol and drug use. Ask Mable to contact patient and offerresources.AllComments:PCMHMedication Management Patient Understands medications he's taking? Yes Are there Barriers to Adherence? No Has the patient been asked about herbal supplements and therapies, and OTC meds? Yes Care Plan1. Patient has been queried about patient's goals/preferences and functional/lifestyle goals at relevant visits. Yes If relevant, describe: N/A2. Treatment goals as explained to the patient: above3. Are there barriers to meeting treatment goals? No If Yes , please describe:4. Self-Management goals as described to the patient: Yes As always, we strongly encourage a healthy diet and making physical activity a part of your every day life. If you have questions about how or where to start, please contact the office.
[2018-08-23 20:00] LABS: ABS Eosinophils 0.1 10^3/ul (0-0.6); ABS Lymphocytes 1.2 10^3/ul (1.0-4.8); ABS Monocytes 0.3 10^3/ul (0-0.8); ABS Neutrophils 8.4 10^3/ul (1.5-7.7); Eosinophil % 0.8 %; Hematocrit 46 % (42-52); Hemoglobin 15.5 g/dL (14.0-18.0); Mean Corpuscular HGB Conc 34 g/dL (31-36); Mean Corpuscular Hemoglobin 29 pg (27-31); Mean Corpuscular Volume 86 fL (80-94); Nucleated Red Blood Cells % 0.1; Platelet Count 213 10^3/uL (150-450); Red Blood Count 5.35 10^6 /uL (4.18-5.48); Red Cell Distribution Width 14 % (10.5-15); White Blood Count 9.9 10^3/uL (3.5-10.8)
[2018-08-23 20:21] LABS: Albumin 4.8 g/dL (3.2-5.2); Calcium 9.8 mg/dL (8.6-10.3); Total Bilirubin 0.6 mg/dL (0.2-1.0)
[2018-08-23 20:27] LABS: Albumin/Globulin Ratio 1.6 (1-3); EGFR African American 90.5 (>60); EGFR Non-African American 74.8 (>60); Total Protein 7.8 g/dL (6.4-8.9)
[2018-08-23 20:49] LABS: Potassium 4.7 mmol/L (3.5-5.0)
[2018-08-23] MEDS ORDERED: Ondansetron INJ* 2 MG/ML VIAL IV ONE (21:12)
[2018-08-23] MEDS ORDERED: NS 0.9% 1000 ML** 1,000 ML IV ONE (21:12)
[2018-08-23] MEDS ORDERED: Meclizine TAB* 12.5 MG PO ONE (21:13)
--- NOTE | 2018-08-23 21:17 | ED ---
Dizziness - HPI Summary HPI Summary: Pt is a 68 y/o M presenting to the ED with a chief complaint of dizziness initially onset last night. He reports hx of Lyme disease and recent exposure to many animals and brush. His symptoms include dizziness, vertigo, nausea, vomiting, diarrhea, and dehydration. He denies blurry vision, CP, SOB, or abd pain. 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 - History Of Current Complaint Chief Complaint: EDNauseaVomitDiarrh Stated Complaint: BLOODWORK SENT BY MD Time Seen by Provider: 08/23/18 20:50 Hx Obtained From: Patient Onset/Duration: Still Present, Suddenly Timing: Days Severity Initially: Moderate Severity Currently: Moderate Character: Dizzy Aggravating Factor(s): Nothing Alleviating Factor(s): Nothing Associated Signs And Symptoms: Positive: Nausea, Vomiting, Diarrhea. Negative: Chest Pain, SOB - Allergies/Home Medications Allergies/Adverse Reactions: Allergies Allergy/AdvReac Type Severity Reaction Status Date / Time Benzodiazepines Allergy See Comment Verified 08/23/18 17:53 clindamycin Allergy Nausea And Verified 08/23/18 17:53 Vomiting Penicillins Allergy Rash Verified 08/23/18 17:53 OILS Allergy See Comment Uncoded 11/22/17 22:41 SUGAR Allergy See Comment Uncoded 11/22/17 22:41 PMH/Surg Hx/FS Hx/Imm Hx Previously Healthy: No Endocrine/Hematology History: Denies: Hx Diabetes Cardiovascular History: Reports: Hx Syncope, Other Cardiovascular Problems/ Disorders - States cardiac symptoms were related to tooth infections Denies: Hx Congestive Heart Failure, Hx Hypertension, Hx Pacemaker/ICD Respiratory History: Denies: Hx Asthma GI History: Reports: Hx Gastroesophageal Reflux Disease, Other GI Disorders - constriction of voice History: Reports: Hx Benign Prostatic Hyperplasia Denies: Hx Dialysis, Hx Renal Disease Musculoskeletal History: Reports: Hx Back Problems - L5 fracture Sensory History: Reports: Hx Contacts or Glasses Denies: Hx Hearing Aid Opthamlomology History: Reports: Hx Contacts or Glasses Neurological History: Reports: Hx Seizures, Other Neuro Impairments/Disorders - Hx L5 fracture, seizure prior to admission, dizziness Denies: Hx Headaches Psychiatric History: Reports: Hx Anxiety, Hx Attention Deficit Hyperactivity Disorder - ADD, Hx Depression, Hx Post Traumatic Stress Disorder - per patient; undiagnosed., Hx Substance Abuse Denies: Hx Panic Disorder - BE CAREFUL OF BRIGHT LIGHT - PLEASE DIM THE LIGHTS, Hx Suicide Attempt - Cancer History Cancer Type, Location and Year: melanoma 4-5 years ago Hx Chemotherapy: No Hx Radiation Therapy: No Hx Palliative Cancer Treatment: No - Surgical History Surgery Procedure, Year, and Place: APPY (AUGUST 2016) SKIN CARCINOMA 2008. TONSILS CHILD Hx Anesthesia Reactions: No Infectious Disease History: No Infectious Disease History: Denies: Traveled Outside the [place] in Last 30 Days - Family History Known Family History: Positive: Cardiac Disease - Father: fatal OR. Mother: OR, Hypertension - Mother, Other Family History: Mother: CVA, alcohol abuse - Social History Alcohol Use: None Hx Substance Use: No Substance Use Type: Reports: None Hx Tobacco Use: No Smoking Status (MU): Never Smoked Tobacco Type: Cigarettes Have You Smoked in the Last Year: No Review of Systems Positive: Other - dehydration Negative: Blurred Vision Negative: Chest Pain Negative: Shortness Of Breath Positive: Vomiting, Diarrhea, Nausea. Negative: Abdominal Pain Neurological: Other - dizziness, vertigo All Other Systems Reviewed And Are Negative: Yes Physical Exam - Summary Physical Exam Summary: GENERAL: Patient is a well-developed and nourished female who is lying comfortable in the stretcher. Patient is not in any acute respiratory distress. HEAD AND FACE: Normocephalic EYES: PERRLA, EOMI x 2. EARS: Hearing grossly intact. MOUTH: Oropharynx within normal limits. NECK: Supple, trachea is midline, no adenopathy, no JVD, no carotid bruit. CHEST: Symmetric, no tenderness at palpation LUNGS: Clear to auscultation bilaterally. No wheezing or crackles. CVS: Regular rate and rhythm, S1 and S2 present, no murmurs or gallops appreciated. ABDOMEN: Soft, non-tender. Bowel sounds are normal. No abnormal abdominal pulsations. EXTREMITIES: Full ROM in all major joints, no edema, no cyanosis or clubbing. NEURO: Alert and oriented x 3. No acute neurological deficits. Speech is normal and follows commands. Cranial nerves II-XII grossly intact, no dysmetria finger to nose, nml heel to winter SKIN: Dry and warm Triage Information Reviewed: Yes Vital Signs On Initial Exam: Initial Vitals Temp Pulse Resp BP Pulse Ox 98.1 F 87 16 134/75 96 08/23/18 17:49 08/23/18 17:49 08/23/18 17:49 08/23/18 17:49 08/23/18 17:49 Vital Signs Reviewed: Yes Diagnostics - Vital Signs Vital Signs Temp Pulse Resp BP Pulse Ox 08/23/18 20:07 98.0 F 81 16 119/66 98 08/23/18 17:49 98.1 F 87 16 134/75 96 - Laboratory Lab Results: Lab Results 08/23/18 08/23/18 08/23/18 Range/Units 19:32 19:32 19:32 WBC 9.9 (3.5-10.8) 10^3/uL RBC 5.35 (4.18-5.48) 10^6 /uL Hgb 15.5 (14.0-18.0) g/dL Hct 46 (42-52) % MCV 86 (80-94) fL MCH 29 (27-31) pg MCHC 34 (31-36) g/dL RDW 14 (10.5-15) % Plt Count 213 (150-450) 10^3/uL MPV 8.0 (7.4-10.4) fL Neut % (Auto) 84.2 % Lymph % (Auto) 12.0 % [place] % (Auto) 2.7 % Eos % (Auto) 0.8 % Baso % (Auto) 0.3 % Absolute Neuts (auto) 8.4 H (1.5-7.7) 10^3/ul Absolute Lymphs (auto) 1.2 (1.0-4.8) 10^3/ul Absolute Monos (auto) 0.3 (0-0.8) 10^3/ul Absolute Eos (auto) 0.1 (0-0.6) 10^3/ul Absolute Basos (auto) 0.0 (0-0.2) 10^3/ul Absolute Nucleated RBC 0.0 10^3/ul Nucleated RBC % 0.1 Sodium 138 (135-145) mmol/L Potassium 4.7 (3.5-5.0) mmol/L Chloride 104 (101-111) mmol/L Carbon Dioxide 27 (22-32) mmol/L Anion Gap 7 (2-11) mmol/L BUN 16 (6-24) mg/dL Creatinine 1.00 (0.67-1.17) mg/dL Est GFR ( Amer) 90.5 (>60) Est GFR (Non-Af Amer) 74.8 (>60) BUN/Creatinine Ratio 16.0 (8-20) Glucose 101 H (70-100) mg/dL Lactic Acid 0.7 (0.5-2.0) mmol/L Calcium 9.8 (8.6-10.3) mg/dL Total Bilirubin 0.60 (0.2-1.0) mg/dL AST 35 (13-39) U/L ALT 41 (7-52) U/L Alkaline Phosphatase 78 (34-104) U/L Troponin I 0.00 (<0.04) ng/mL Total Protein 7.8 (6.4-8.9) g/dL Albumin 4.8 (3.2-5.2) g/dL Globulin 3.0 (2-4) g/dL Albumin/Globulin Ratio 1.6 (1-3) Result Diagrams: 08/23/18 19:32 08/23/18 19:32 Lab Statement: Any lab studies that have been ordered have been reviewed, and results considered in the medical decision making process. - EKG 1835 Cardiac Rate: NL - 88bpm EKG Rhythm: Sinus Rhythm ST Segment: Normal Ectopy: None EKG Comparison: No Significant Change Summary of EKG Findings: EKG at 1835 shows NSR at 88bpm with L axis deviation and incomplete RBBB. No significant change from 07/19/17. Dizzy Course/Dx - Course Course Of Treatment: Pt is a 68 y/o M presenting to the ED with a chief complaint of dizziness initially onset last night. His symptoms include dizziness, vertigo, nausea, vomiting, diarrhea, and dehydration. He denies blurry vision, CP, SOB, or abd pain. 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 D/t the pt's hx of seizures and the pt's current presentation, I advised the pt that I was going to be giving him a CT of his head. He stated that he has had many CTs over the last couple of years, such as on his pelvis and head, and wanted to talk it over with his first. I explained to him the intracranial pathology that could be a possibility with his current sx, such as a hemorrhage, and that it was my medical advice to have a CT of his head done. EKG at 1835 shows NSR at 88bpm with L axis deviation and incomplete RBBB. No significant change from 07/19/17. I went back into the pt s room at 2129 to discuss whether he wanted to do a head CT or not. He stated he would not like to do the CT scan and that he would actually like to go home and see how he feel s over the next few days. I told him I cannot rule out serious intracranial abnormalities, including hemorrhagic or ischemic CVAs, and that he would be leaving against medical advice. The pt is awake, A&Ox4 and seems capable of making his own decisions, as well as understands the seriousness of this situation, including that it could be an intracranial abnormality. He stated it feels like when he had Lyme disease, and that he would rather f/u with his PCP and get Abx, and that he will come back if he feels like he needs to. He will be sent home AMA with dx including dizziness and nausea & vomiting, as well as Zofran for the nausea, which he initially did not want. I advised he should have it in case he began vomiting again and he agreed to go home with that prescription. - Diagnoses Provider Diagnoses: Dizziness, Nausea & vomiting Discharge - Sign-Out/Discharge Documenting (check all that apply): Patient Departure Patient Received Moderate/Deep Sedation with Procedure: No - Discharge Plan Condition: Stable Disposition: AGAINST MEDICAL ADVICE Prescriptions: Ondansetron ODT TAB* [Zofran 4 MG Odt TAB*] 4 mg PO Q8H PRN #12 tab.odt PRN Reason: Vomiting Referrals: Luis Eduardo Broderick MD [Primary Care Provider] - Additional Instructions: Please take your prescribed medications as instructed. Follow up with your primary care provider in the next 1-2 days. Return to the emergency department with any new or worsening symptoms. - Billing Disposition and Condition Condition: STABLE Disposition: Against Medical Advice - Attestation Statements Document Initiated by Scribe: Yes Documenting Scribe: Maria E Lilly Provider For Whom Scribe is Documenting (Include Credential): Mirta Kebede MD. Scribe Attestation: I, Maria E Lilly, scribed for Mirta Kebede MD. on 08/24/18 at 1150. Scribe Documentation Reviewed: Yes Provider Attestation: The documentation as recorded by the scribeMaria E accurately reflects the service I personally performed and the decisions made by me, Kathi Kebede MD. Status of Scribe Document: Viewed
[2018-08-23] MEDS ORDERED: lamoTRIgine TAB(*) 100 MG PO ONE (21:23)
[2018-08-23 22:35] VITALS: BP 121/79
== END 2018-08-23 22:34 | disposition left against medical advice (07) ==
LOC: ED 17:32
DX: R11.2 Nausea with vomiting, unspecified (principal); R42 Dizziness and giddiness; R55 Syncope and collapse; R94.31 Abnormal electrocardiogram [ECG] [EKG]; K21.9 Gastro-esophageal reflux disease without esophagitis; N40.0 Benign prostatic hyperplasia without lower urinary tract symptoms; M84.48XA Pathological fracture, other site, initial encounter for fracture; F41.9 Anxiety disorder, unspecified; F98.8 Other specified behavioral and emotional disorders with onset usually occurring in childhood and adolescence; F32.9 Major depressive disorder, single episode, unspecified; Z85.820 Personal history of malignant melanoma of skin; Z88.0 Allergy status to penicillin; Z88.3 Allergy status to other anti-infective agents; Z88.8 Allergy status to other drugs, medicaments and biological substances
CPT/HCPCS: 36415; 80053; 83605; 84484; 85025; 93005; 96374; 99283; A9270-GY; J2405